=== PATIENT | male | born 1940 | race African-American/Black ===

== ENCOUNTER 2017-03-26 06:42 | Inpatient (IN) | payer MEDICARE ==
--- NOTE | ~2017-03-26 | A ---
[facility] Nutrition Therapy DATE: 03/27/17 Patient: KIERSTEN BRIZUELA Physician: JOSE LUIS Address: [address] Room/Bed: [address] [place] [address], Zip: [place] [address] Admit Date: 03/26/17 Date of : 40 Height: 6 4 Weight: 142 64.6 NUTRITIONAL ASSESSMENT: REASON: Consult RE: tube feed recs, 2 pts RE: home tube feed/ pressure ulcer 76 yo male admitted for respiratory failure, PNA PMH: Throat cancer s/p tracheostomy placement, lung cancer, anemia, dysphagia s/p PEG, HTN, T2DM Anthropometrics: Ht: 6'4" Wt: 64.5 kg (142#) BMI: 17.3 IBW: 202# 70% IBW Labs: Na+ 133, K+ 3.4, Gluc 164, Ca++ 7.8, POC 118 Meds: NaCl, Lipitor, Miralax, Novolog, Zofran, Vitamin B, Protonix, MVI I/O & Bowel function: 450/850, last BM 03/25 Skin Integrity: Open sore (sacral), dry skin (BLE), no edema noted Estimated Nutrition Needs: 7537-5173 kcal (30-35 kcal/kg) 97-129 g protein (1.5-2.0 g/kg) Assessment: Chart reviewed, events noted. Pt unable to talk d/t tracheomstomy placement d/t recent diagnosis of throat cancer. Pt is on home TF via PEG d/t h/o dysphagia. Pt was unable to give home tube feed regimen. Pt was able to nod head in agreement of recent weight loss of unknown amount. No past weights listed in AMDL. See recommendations below. Dx: Inadequate oral intake RT PMH, dysphagia AEB 17.3 BMI, 70% IBW, PEG placement prior to hospital admit. Intervention: 1. Enteral nutrition Monitoring, Evaluation and Goals: 1. Enteral nutrition; provide >80% of estimated needs and goal volume x 24 hrs 2. Weight; prevent unintentional weight loss, promote weight gain 3. Skin; promote healing Recommendations: 1. Once medically feasible, initiate enteral nutrition with Glucerna 1.5 @ 20 mL, advance 10 mL q 10 hrs to goal rate of 60 mL/hr. This will provide: 2160 kcal/ 119 g protein/ 1095 [facility] Nutrition Therapy DATE: 03/27/17 Patient: KIERSTEN BRIZUELA Physician: JOSE LUIS Address: [address] Room/Bed: [address] [place] [address], Zip: [place] [address] Admit Date: 03/26/17 Date of : 40 Height: 6 4 Weight: 142 64.6 mL free H2O. Free water flushes per MD. 2. Recommend PROVIDER NETWORK ANALYST evaluation once pt able to tolerate po intake Pt is at a moderate-severe nutritional risk. RD will f/u per protocol. Respectfully, Gaye Ugalde, Director Of Hotel Operations Satya Upton MS, RD, LD Food and Nutritional Services [facility] cc: client file
--- NOTE | ~2017-03-26 | CR72 ---
[facility] A Service of [facility] RADIOLOGY TEXT RESULTS PATIENT: KIERSTEN BRIZUELA LOCATION: [facility] 564-01 : 40 UNIT #: [id number] AGE: [address]: Leyla Govea MD SEX: M ORDER DR: [id number] [facility] [address] [facility] [place], [place] [address] [id number] I MR#: [id number] #: [id number] NAME: KIERSTEN BRIZUELA : 1940 SEX: M STUDY DATE/TIME: 03/26/2017 6:31 UNIT: CEDOF ROOM: 78101 STUDY DESCRIPTION: CR Chest Single View Portable Attending Physician: Radhika Somers M.D. Ordering Physician: Blake Garcia M.D. Primary Care Physician: Primary Care Physician No MEDICAL IMAGING REPORT This report is preliminary unless electronic signature is present EXAM Single view of the chest dated 03/26/2017 COMPARISON None HISTORY Fever, tracheal drainage, nonstop. Emesis, nausea, vomiting for the last xky-au-torvd days. Recently diagnosed with pneumonia. FINDINGS Single view of the chest was obtained. A tracheostomy tube is in place. Lungs are probably slightly hyperinflated suspicious for emphysematous changes in the appropriate clinical setting. There is diffuse mild prominence of the interstitial markings in the lungs bilaterally, right greater than left with some scattered minimal alveolar opacities in bilateral lungs. Minimal right-sided pleural effusion cannot be excluded. Heart is of normal size. No pneumothorax. IMPRESSION 1. Status post tracheostomy. 2. Slightly hyperinflated lungs suspicious for emphysematous changes. Scattered mild interstitial and alveolar disease are noted in the lungs bilaterally, right greater than left. It is probably inflammatory. 3. Minimal right-sided pleural fluid is suspected. No pneumothorax. Dictated by... Juan Landaverde M.D. THIS IS AN ELECTRONICALLY VERIFIED REPORT Juan Landaverde M.D. at 03/27/2017 3:19 PM CPR/jw [facility] A Service of [facility] RADIOLOGY TEXT RESULTS PATIENT: KIERSTEN BRIZUELA LOCATION: [facility] 564-01 : 40 UNIT #: [id number] AGE: [address]: Leyla Govea MD SEX: M ORDER DR: TD: 03/26/2017 10:45 JOB #: [id number] MEDICAL IMAGING REPORT Page 1 of 1 COPY
--- NOTE | ~2017-03-26 | HP ---
Unit #: [id number] #: [id number] Patient: KIERSTEN BRIZUELA [id number] [place], [place] [address] [id number] I MR#: [id number] NAME: KIERSTEN BRIZUELA ROOM: [facility] Age: 76 Sex: M Admission Date: 03/26/2017 : 1940 Attending Physician: Radhika Somers M.D. HISTORY AND PHYSICAL REASON FOR ADMISSION Acute hypoxic respiratory failure, healthcare-acquired pneumonia. HISTORY OF PRESENT ILLNESS Patient is a 76-year-old male who recently underwent tracheostomy, as well as surgical intervention for cancer of the larynx at the [facility]. Afterwards, he was transferred to a local rehab facility. Over the past several days he had progressive cough and dyspnea, as well as profound weakness. Increased secretions were noted from the tracheostomy placement. Subsequently, he was transferred to [facility] for further evaluation. While he was here, initial chest x-ray raised the possibility of acute infiltrates, and he was admitted after he was noted to be acutely hypoxic for the same. Patient is able to communicate with nodding his head up and down. He does speak a few words, but the majority of his history, as well as review of systems, has been elicited after discussion with the patient's nephew who is present at bedside. PAST MEDICAL HISTORY 1. Recent throat cancer diagnosis with resultant surgery including tracheostomy placement. 2. Prior history of lung cancer. I do not believe he has had a lung resection. I am not sure if he is undergoing chemotherapy or radiation, and nephew is unsure of plans as well. 3. Anemia. 4. History of dysphagia, status post PEG tube placement. 5. Hypertension. 6. Diabetes type 2. PAST SURGICAL HISTORY 1. Tracheostomy. 2. Percutaneous endoscopic gastrostomy tube placement. HOME MEDICATIONS 1. Allopurinol. 2. Norvasc. 3. Ferrous sulfate. 4. Claritin. 5. Metoprolol. 6. Multivitamin. 7. Omeprazole. 8. Simvastatin. 9. Thiamine. Unit #: [id number] #: [id number] Patient: KIERSTEN BRIZUELA 10. Vitamin E. FAMILY HISTORY Reviewed and noncontributory or non-pertinent. SOCIAL HISTORY Patient is a lifelong smoker of one to one and a half packs of cigarettes per day. Remote history of alcohol use. No illicit drug use. REVIEW OF SYSTEMS Please see History of Present Illness. Elicited after discussions with patient's nephew who was present at bedside. PHYSICAL EXAMINATION VITAL SIGNS: Temperature 98.4, pulse 75, respiratory rate 26, and blood pressure 110/70. GENERAL APPEARANCE: Patient is a 76-year-old, frail male in no acute distress. HEAD: Atraumatic and normocephalic. EARS: Tympanic membranes do not reveal any erythema or injection. NECK: Supple. Anterior also reveals tracheostomy which is in place. There are thick secretions which are noted. CARDIOVASCULAR: S1 and S2 without murmur. RESPIRATORY: Coarse rhonchi noted with prolonged expiration. GASTROINTESTINAL/ABDOMEN: Nontender and nondistended. LOWER EXTREMITIES: No evidence of any lower extremity edema and no calf tenderness. NEUROLOGIC: Alert and oriented x3. He does speak a few words and mumbles throughout conversation. INITIAL ER COURSE Normal saline, vancomycin, Zosyn, and tobramycin were initiated. Initial laboratory studies show a hemoglobin of 8.2 and white count normal. Glucose 271. Chest x-ray shows acute infiltrates. Vital signs at time of admission showed a temperature of 100.7, pulse 127, and blood pressure 103/47. INITIAL ADMISSION DIAGNOSES 1. Acute hypoxic respiratory failure. 2. Sepsis criteria present on admission. 3. Healthcare-acquired pneumonia. 4. Chronic respiratory failure. 5. 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 6. Mucus plugging and/or thick secretions noted tracheostomy. 7. Prior history of lung carcinoma, details unclear. 8. Hypertension. 9. Failure to thrive. 10. Diabetes type 2. PLAN Admission to telemetry floor. Healthcare-acquired pneumonia protocol to be initiated with the exception of tobramycin. Check CT chest. Pulmonary consultation. Laboratory studies in a.m. Plans have been reviewed with patient's (1) present at bedside. Patient is Full Code. Speech therapy services will also evaluate swallowing mechanism. Nutrition consult as well. Dictated by Unit #: [id number] #: [id number] Patient: KIERSTEN BRIZUELA M.D. ISN/am TD: 03/26/2017 20:06 JOB #: [id number] HISTORY AND PHYSICAL Page 1 of 1 X Radhika Somers MD HISTORY AND PHYSICAL
--- NOTE | ~2017-03-26 | CT55 ---
[facility] A Service of [facility] RADIOLOGY TEXT RESULTS PATIENT: KIERSTEN BRIZUELA LOCATION: [facility] 564-01 : 40 UNIT #: [id number] AGE: [address]: Leyla Govea MD SEX: M ORDER DR: [id number] [facility] [address] [facility]. [place], [place] [address] [id number] I MR#: [id number] Acc #: [id number] NAME: KIERSTEN BRIZUELA : 1940 SEX: M STUDY DATE/TIME: 03/27/2017 1:34 UNIT: [facility] ROOM: [facility] STUDY DESCRIPTION: CT Chest W Con Attending Physician: Radhika Somers M.D. Ordering Physician: Radhika Somers M.D. Primary Care Physician: Primary Care Physician No MEDICAL IMAGING REPORT This report is preliminary unless electronic signature is present EXAM CT chest with contrast Date: 03/27/2017 HISTORY Acute respiratory failure, shortness of breath, pneumonia, nausea, vomiting and fever. Symptoms present for 2 days. History of throat and lung cancer. COMPARISON AP portable chest 03/26/2017. No prior CT chest at this institution for comparison. PROCEDURE 5 mm axial images from the thoracic inlet through the upper abdomen after IV contrast administration. Sagittal and coronal reformatted images were obtained. This CT exam was performed with one or more of the following radiation dose reduction techniques: automatic exposure control, adjustment of mA and/or kV according to patient size, and iterative reconstruction. FINDINGS Abnormal infiltrative soft tissue thickening is demonstrated within the right lower neck beginning above the level of the thyroid gland, encasing but not obstructing the right common carotid artery. Surgical clips are seen in the same vicinity. There is infiltrative soft tissue mass within the middle mediastinum anterior to the rjk-xh-cunia thoracic trachea extending nearly 4.2 cm craniocaudally. At the anterior margin of the carlos, the soft tissue thickening measures at least 2.6 cm AP x 5.7 cm transverse, extending to the subcarinal region, but measures at least 2.4 cm thickness on the left. The main stem bronchi remain patent. STS. [facility] A Service of [facility] RADIOLOGY TEXT RESULTS PATIENT: KIERSTEN BRIZUELA LOCATION: [facility] 564-01 : 40 UNIT #: [id number] AGE: [address]: Leyla Govea MD SEX: M ORDER DR: Extensive multifocal patchy nodular densities are seen throughout both lungs thought to represent multifocal pneumonia. There is more confluent irregular airspace disease in the anterior left upper lobe measuring 2.7 x 1.7 cm. Dense consolidations are present within posterior bilateral lower lobes, and there is a small to moderate right pleural effusion layering to a depth of 3.5 cm. Left basilar pleural fluid appears loculated measuring up to 3 cm thickness. Although the study is not tailored for evaluation of pulmonary embolism, no pulmonary embolism is seen. Background moderate emphysematous changes are present. Tracheostomy appliance is in place. Percutaneous gastrostomy tube is in place. Included portions of the upper abdominal organs are within normal limits. No acute or suspicious osseous lesions are identified. IMPRESSION 1. Consolidative changes in the bilateral lower lobes favored to represent pneumonia, with multifocal patchy nodular densities scattered throughout both lungs predominately peribronchiolar distribution favored to represent multifocal pneumonia changes. 2. Small to moderate right pleural effusion. Small left basilar pleural effusion appears loculated. 3. Infiltrative appearing soft tissue mass within the mediastinum along the pretracheal distribution extending to the precarinal and subcarinal regions. Findings may represent changes of patient's stated history of throat or lung cancer. Additionally, infiltrative soft tissue thickening is also seen within the right lower neck. Metastatic disease at that location not excluded. 4. Tracheostomy appliance in place. 5. Moderate emphysema. 6. Percutaneous gastrostomy tube in place. 7. Not mentioned in the body of the report, there are dense coronary calcifications. Please correlate with cardiac history. Dictated by... Angeles Powell M.D. THIS IS AN ELECTRONICALLY VERIFIED REPORT Angeles Powell M.D. at 03/28/2017 10:00 PM Pj TD: 03/27/2017 07:30 JOB #: [id number] MEDICAL IMAGING REPORT Page 1 of 1 COPY
--- NOTE | ~2017-03-26 | DS ---
Unit #: [id number] #: [id number] Patient: KIERSTEN BRIZUELA [id number] [address] [address] [id number] I MR#: [id number] NAME: KIERSTEN BRIZUELA ROOM: 56 Age: 76 Sex: M Admission Date: 03/26/2017 : 1940 Discharge Date: Attending Physician: Leyla Govea M.D. Primary Care Physician: Anabella Primary Care Physician DISCHARGE SUMMARY DISCHARGE DIAGNOSES 1. Sepsis from pneumonia. 2. Methicillin-resistant Staphylococcus aureus pneumonia. 3. Qtqqv-xc-saxaixn hypoxic respiratory failure. 4. Coccyx and sacral decubitus ulcer, stage II, present on admission. 5. History of throat cancer with surgery including tracheostomy placement. 6. History of lung cancer. 7. History of dysphagia, status post percutaneous endoscopic gastrostomy tube placement. 8. History of anemia. 9. Hypertension. 10. Diabetes mellitus type 2, uncontrolled. 11. Anemia, chronic iron deficiency. 12. Mild hyponatremia. 13. Hypocalcemia. 14. Metabolic acidosis. 15. Severe protein malnutrition. 16. Underweight with calorie malnutrition. CONSULTATIONS Dr. Rivera. PROCEDURES None. DIAGNOSTIC STUDIES LABORATORY DATA: Glucose 155, sodium 130, potassium 4.0, creatinine 0.9, carbon dioxide 21, liver enzymes normal, albumin 2.0. Sputum cultures growing MRSA. WBC 6.5, hemoglobin 8.6, platelets 223. IMAGING: CT of the chest shows bilateral lower lobe consolidative changes. ALLERGIES DANIELA inhibitors and bupropion. DISCHARGE MEDICATIONS 1. Albuterol 3 mL nebulizer q.i.d. 2. Albuterol 3 mL nebulizer q.2 h. p.r.n. shortness of breath. 3. Neurontin 300 q.i.d. 4. Claritin 10 mg daily. 5. Norvasc 10 mg p.o. daily. 6. Lopressor 25 t.i.d. Unit #: [id number] #: [id number] Patient: KIERSTEN BRIZUELA 7. MiraLAX 17 grams daily. 8. Simvastatin 40 daily. 9. NovoLog low dose sliding scale q.6 h. 10. Ferrous sulfate 300 daily. 11. Allopurinol 100 b.i.d. 12. Chlorhexidine oral rinse 15 mL t.i.d. 13. Multivitamin one tablet daily. 14. Omeprazole 20 daily. 15. Vitamin B complex 0.4 mg daily, 16. Vitamin E 200 units daily. 17. Bactrim DS one tablet through PEG b.i.d. for seven days. HOSPITALIZATION COURSE A 76-year-old admitted because of shortness of breath. Wxfsh-aa-seidpdv hypoxic respiratory failure from pneumonia: Continue with the oxygen as needed p.r.n. through tracheostomy. MRSA pneumonia: Patient was started on broad-spectrum antibiotics. Sputum cultures are growing MRSA. He is receiving vancomycin currently. I am going to discontinue vancomycin and continue the Bactrim as per Dr. Rivera's recommendations. Currently he is afebrile, WBC normal. I Coccyx and sacral stage II decubitus ulcer, present on admission: Continue with the local wound care. Patient has severe protein malnutrition and calorie malnutrition and underweight: Continue with the dietitian recommendations. Dietitian saw the patient during the hospitalization course. Anemia secondary to iron deficiency, chronic: Continue with iron tablets. DISPOSITION Discussed with , okay to discharge to rehab. DISCHARGE INSTRUCTIONS Please note that patient has high risk of readmissions from pneumonia because of continuous secretions through his trach and poor generalized condition. Patient is trach suctioning q.4 h. Patient needs his head elevated at 45 degrees all the time. Discharge time taken is 32 minutes. Dictated by... Len Gonzalez/maribel TD: 03/29/2017 15:24 JOB #: [id number] Unit #: [id number] #: [id number] Patient: KIERSTEN BRIZUELA DISCHARGE SUMMARY Page 1 of 1 X Leyla Govea MD X DISCHARGE SUMMARY
--- NOTE | ~2017-03-26 | CO ---
Unit #: [id number] #: [id number] Patient: KIERSTEN COHN [id number] [address] [place], [place] [address] [id number] I MR#: [id number] NAME: KIERSTEN COHN ROOM: 564 Age: 76 Sex: M Admission Date: 03/26/2017 : 1940 Attending Physician: Leyla Govea M.D. Consultation Date: 03/27/2017 CONSULTATION REPORT REASON FOR CONSULTATION Pneumonia. HISTORY OF PRESENT ILLNESS A 76-year-old gentleman, who apparently underwent laryngectomy and tracheostomy at [facility], but those records and details are unavailable. He was at rehab and had increasing cough and shortness of breath and presented to the hospital, where he was diagnosed with pneumonia. There was mention of respiratory failure, but I do not see a documented low room air sat. Today, he states he feels better. He denies any hemoptysis, wheezing. He really cannot tell me if he had mucopurulent sputum. He seems to lack insight. PAST MEDICAL HISTORY Throat cancer with some type of surgery including tracheostomy, details unavailable; history of abnormal CAT scan. There is mention of possible lung cancer, but he states "if I have it, they haven't told me yet." He denies any chemotherapy or radiation for anything in his chest. History of dysphagia, status post PEG tube. History of anemia, hypertension, and diabetes. MEDICATIONS Allopurinol, Norvasc, iron, Claritin, metoprolol, multivitamin, Prilosec, simvastatin, thiamine, and vitamin E. ALLERGIES DANIELA inhibitors and Zyban. SOCIAL HISTORY Basically smoked up until he has tracheostomy. FAMILY HISTORY No definite familial lung disease. REVIEW OF SYSTEMS Difficult to obtain. He denies chest pain, palpitations, abdominal pain, hematemesis. Again, he apparently has a PEG tube, must have some type of dysphagia. Primary team is considering video swallow. No focal weakness or paresthesias. No definite fever. No hematuria or dysuria. Further review of systems negative and again somewhat unreliable. PHYSICAL EXAMINATION GENERAL: Reveals a patient, who is thin and somewhat cachectic appearing. Unit #: [id number] #: [id number] Patient: GELACIO,KIERSTEN VITAL SIGNS: He had a T-max of 100.7, now afebrile; pulse 71; respiratory rate is 20; blood pressure is 103/59. He is 6 feet 4 inches, 142 pounds. HEENT: Pupils are equal, round, and reactive to light. Sclerae anicteric. Head atraumatic. NECK: Supple. No supraclavicular or cervical adenopathy appreciated. Shiley trach in. CHEST: Decreased breath sounds. Scattered rhonchi. No definite wheeze. CARDIAC: PMI in his epigastrium. Regular rate and rhythm. No definite murmur, rub, or gallop. ABDOMEN: Soft and nontender. No hepatomegaly or rebound. EXTREMITIES: Reveal no clubbing, cyanosis, or edema. Calves are nontender. SKIN: Very dry, but no acute rash or diaphoresis. NEUROLOGIC: Grossly intact. No focal motor or sensory deficits. DIAGNOSTIC STUDIES IMAGING STUDIES: CT scan shows emphysema, left lower lobe pneumonia, scattered patchy infiltrates particularly on the right, and a left upper lobe mass like lesion. No old scans are available. LABORATORY RESULTS: His BUN is 15, creatinine is 0.7, potassium is 3.4. Lactic acid 1.4. TSH normal. Cardiac enzymes normal. CBC; white blood cell count was 11.5, now 10.2; hemoglobin 8.2; MCV is 100.8; platelet count normal. Urinalysis markedly abnormal, innumerable white cells, 5 to 10 red cells. Blood cultures performed and are pending. Urine is pending. No sputum has been obtained. There was an MRSA screen of his nares performed and it is pending. CARDIOVASCULAR STUDIES: EKG, rhythm strips are sinus. It appears he has possible right bundle-branch. EKG is informal. IMPRESSION 1. Pneumonia, suspect aspiration. 2. Emphysema. 3. Questionable respiratory failure. 4. Abnormal urinalysis consistent with urinary tract infection. 5. Abnormal CAT scan, including masslike area left upper lobe. 6. Very small pleural effusions, likely too small to undergo thoracentesis. 7. Suspect aspiration. 8. Medical problems listed above. PLAN Agree with antibiotics. Follow up cultures obtained, but he needs a stat sputum Gram stain and culture. It should be easily obtained given his tracheostomy. I will add nebulized bronchodilators to improve mucociliary clearance. I will check room air oxygenation needs. If plans are to remove the PEG, then agree with video swallow, otherwise continue nutrition. [facility]. Again, details are unavailable for [facility] for [facility] and follow up with his lung mass. Thank you very much for allowing me to participate in the care of Mr. Cohn. Dictated by... Edgardo Rivera M.D. Unit #: [id number] #: [id number] Patient: KIERSTEN COHN CARLOS/julienne TD: 03/28/2017 02:31 JOB #: [id number] CONSULTATION REPORT Page 1 of 1 X Edgardo Rivera MD X CONSULTATION REPORT
--- NOTE | ~2017-03-26 | EKG ---
PATIENT: KIERSTEN BRIZUELA UNIT #: [id number] Ventricular Rate: 98 BPM Atrial Rate: 98 BPM P-R Interval: 136 ms QRS Duration: 130 ms Q-T Interval: 398 ms QTC Calculation(Bezet): 508 ms P [place]: 78 degrees Calculated R [place]: -72 degrees Calculated T [place]: 72 degrees Diagnosis Line: Normal sinus rhythm Diagnosis Line: Right bundle branch block Diagnosis Line: Left anterior fascicular block Diagnosis Line: Bifascicular block Diagnosis Line: Abnormal ECG Diagnosis Line: No previous ECGs available Diagnosis Line: Confirmed by SOCORRO BENDER MD ([id number]) on 03/26/2017 Diagnosis Line: 10:50:58 PM INTERPRETING MD: YULIA BEARDEN
[2017-03-26 06:30] LABS: POC - CKMB <1.0 ng/mL (0.0-7.9); POC - TROPONIN <0.05 ng/mL (<=0.05)
[2017-03-26 07:51] LABS: BASOPHIL% 0.3 % (0-2.5); EOSINOPHIL% 0.4 % (0.0-7.0); HEMATOCRIT 25.1 % (38.0-50.0); HEMOGLOBIN 8.2 gm/dL (13.0-16.0); LYMPHOCYTE# 0.3 X10e3 (1.0-3.5); LYMPHOCYTE% 3.9 % (17.0-45.0); MEAN CORPUSCULAR HEMOGLOBIN 33.2 PG (28-34); MEAN CORPUSCULAR HGB CONC 32.5 g/dL (30-36); MEAN PLATELET VOLUME 9.1 FL (6.5-11.5); MONOCYTE# 0.3 X10e3 (0-1.0); MONOCYTE% 3.4 % (3.0-12.0); NEUTROPHIL# 7.4 X10e3 (1.5-7.1); PLATELET COUNT 196 X10e3 (140-420); RED BLOOD COUNT 2.46 X10e (3.90-5.60); RED CELL DISTRIBUTION WIDTH 13.6 % (11.0-15.5)
[2017-03-26 07:53] LABS: DIFF IND NO
[2017-03-26 08:26] LABS: ALBUMIN SERUM 1.9 g/dL (3.5-5.0); BILIRUBIN, DIRECT 0.1 mg/dL (0.0-0.2); BILIRUBIN,INDIRECT 0.4 mg/dL (0.0-0.9); BILIRUBIN,TOTAL 0.5 mg/dL (0.2-2.0); CALCIUM SERUM 7.9 mg/dL (8.4-10.2); GLOM FILT RATE Estimated 72.8 mL/min (>60); POTASSIUM 3.5 mmol/L (3.5-5.1); PROTEIN TOTAL SERUM 6.4 g/dL (6.0-8.3)
[2017-03-26 08:50] LABS: URINE SOURCE CLEAN CATCH
[2017-03-26 09:02] LABS: URINE APPEARANCE CLOUDY; URINE BILIRUBIN NEG (NEG); URINE BLOOD 1+ (NEG); URINE COLOR YELLOW; URINE GLUCOSE NEG (NEG); URINE KETONE NEG (NEG); URINE LEUKOCYTE ESTERASE 3+ (NEG); URINE NITRATE POS (NEG); URINE PROTEIN 1+ (NEG); URINE SPECIFIC GRAVITY 1.018 (1.003-1.035)
[2017-03-26 09:06] LABS: CULTURE INDICATED? YES; U HYALINE CASTS AUWI 0-2 /[LPF]; URINE BACTERIA AUWI NEG (NEGATIVE); URINE SQUAMOUS EPITHELIAL CELL NONE SEEN /[HPF]; UWBCS1 AUWI INNUM (0-5)
[2017-03-26] MEDS ORDERED: GLUCERNA 1.5 C237 ML GT (12:39)
[2017-03-26] MEDS ORDERED: AMLODIPINE BESY10 MG GT (12:40)
[2017-03-26] MEDS ORDERED: ALLERGY10 M1 GT (12:40)
[2017-03-26] MEDS ORDERED: MULTI-VITAMIN-1 EACH GT (12:41)
[2017-03-26] MEDS ORDERED: OMEPRAZOLE20 M1 GT (12:42)
[2017-03-26] MEDS ORDERED: VITAMIN B-1000.4 MG GT (12:44)
[2017-03-26] MEDS ORDERED: [UNRECOGNIZED DRUG - OTHER] GT (12:45)
[2017-03-26] MEDS ORDERED: FERROUS SU220 MG/53 GT (12:46)
[2017-03-26] MEDS ORDERED: PERIDEX480 ML PO (12:52)
[2017-03-26] MEDS ORDERED: NEURONTIN300 MG GT (12:52)
[2017-03-26] MEDS ORDERED: ZYLOPRIM100 MG GT (12:53)
[2017-03-26] MEDS ORDERED: METOPROLOL SUCC25 MG GT (12:53)
[2017-03-26] MEDS ORDERED: SIMVASTATIN40 MG GT (12:53)
[2017-03-26] MEDS ORDERED: MIRALAX17 GM GT (12:54)
[2017-03-26 18:05] LABS: HEMATOCRIT 27.8 % (38.0-50.0); HEMOGLOBIN 9.3 gm/dL (13.0-16.0); MEAN CELL VOLUME 100.9 FL (83-96); MEAN CORPUSCULAR HEMOGLOBIN 33.7 PG (28-34); MEAN CORPUSCULAR HGB CONC 33.4 g/dL (30-36); MEAN PLATELET VOLUME 8.1 FL (6.5-11.5); RED BLOOD COUNT 2.75 X10e (3.90-5.60); RED CELL DISTRIBUTION WIDTH 13.1 % (11.0-15.5); WHITE BLOOD COUNT 11.5 X10e3 (4.0-10.5)
[2017-03-26 18:27] LABS: BILIRUBIN,TOTAL 0.8 mg/dL (0.2-2.0); BUN/CREATININE RATIO 23.75; CALCIUM SERUM 7.9 mg/dL (8.4-10.2); CREATININE SERUM 0.8 mg/dL (0.6-1.4); GLOM FILT RATE Estimated 100.6 mL/min (>60); POTASSIUM 4.4 mmol/L (3.5-5.1); PROTEIN TOTAL SERUM 6.7 g/dL (6.0-8.3)
[2017-03-27 05:22] LABS: HEMATOCRIT 24.4 % (38.0-50.0); HEMOGLOBIN 8.2 gm/dL (13.0-16.0); MEAN CELL VOLUME 100.8 FL (83-96); MEAN CORPUSCULAR HEMOGLOBIN 33.9 PG (28-34); MEAN CORPUSCULAR HGB CONC 33.6 g/dL (30-36); MEAN PLATELET VOLUME 8.1 FL (6.5-11.5); RED BLOOD COUNT 2.42 X10e (3.90-5.60); RED CELL DISTRIBUTION WIDTH 13.1 % (11.0-15.5); WHITE BLOOD COUNT 10.2 X10e3 (4.0-10.5)
[2017-03-27 06:48] LABS: BUN/CREATININE RATIO 21.42; CALCIUM SERUM 7.8 mg/dL (8.4-10.2); CREATININE SERUM 0.7 mg/dL (0.6-1.4); GLOM FILT RATE Estimated 106.3 mL/min (>60); POTASSIUM 3.4 mmol/L (3.5-5.1)
[2017-03-28 06:18] LABS: HEMATOCRIT 25.2 % (38.0-50.0); HEMOGLOBIN 8.4 gm/dL (13.0-16.0); MEAN CELL VOLUME 100.3 FL (83-96); MEAN CORPUSCULAR HEMOGLOBIN 33.4 PG (28-34); MEAN CORPUSCULAR HGB CONC 33.3 g/dL (30-36); MEAN PLATELET VOLUME 7.6 FL (6.5-11.5); RED BLOOD COUNT 2.52 X10e (3.90-5.60); RED CELL DISTRIBUTION WIDTH 13.3 % (11.0-15.5); WHITE BLOOD COUNT 7.6 X10e3 (4.0-10.5)
[2017-03-28 07:04] LABS: BUN/CREATININE RATIO 15.71; CALCIUM SERUM 7.7 mg/dL (8.4-10.2); CREATININE SERUM 0.7 mg/dL (0.6-1.4); GLOM FILT RATE Estimated 106.3 mL/min (>60); POTASSIUM 3.4 mmol/L (3.5-5.1)
[2017-03-29 05:34] LABS: HEMOGLOBIN 8.6 gm/dL (13.0-16.0); MEAN CORPUSCULAR HEMOGLOBIN 33.4 PG (28-34); MEAN CORPUSCULAR HGB CONC 33.1 g/dL (30-36); MEAN PLATELET VOLUME 7.9 FL (6.5-11.5); RED BLOOD COUNT 2.57 X10e (3.90-5.60); RED CELL DISTRIBUTION WIDTH 13.3 % (11.0-15.5); WHITE BLOOD COUNT 6.5 X10e3 (4.0-10.5)
[2017-03-29 06:22] LABS: BILIRUBIN,TOTAL 0.7 mg/dL (0.2-2.0); BUN/CREATININE RATIO 15.55; CALCIUM SERUM 7.9 mg/dL (8.4-10.2); CREATININE SERUM 0.9 mg/dL (0.6-1.4); GLOM FILT RATE Estimated 95.8 mL/min (>60); PROTEIN TOTAL SERUM 6.7 g/dL (6.0-8.3)
== END 2017-03-29 18:34 | DRG 871 ==
LOC: CED 06:42 → CEDOF 09:05 → C5C 15:10
PROVIDERS: Emergency Medicine; Family Medicine; Internal Medicine
DX: A41.02 Sepsis due to Methicillin resistant Staphylococcus aureus (principal); J15.212 Pneumonia due to Methicillin resistant Staphylococcus aureus; J96.21 Acute and chronic respiratory failure with hypoxia; E43 Unspecified severe protein-calorie malnutrition; L89.152 Pressure ulcer of sacral region, stage 2; T17.490A Other foreign object in trachea causing asphyxiation, initial encounter; E87.2 Acidosis; E11.9 Type 2 diabetes mellitus without complications; E87.1 Hypo-osmolality and hyponatremia; Z68.1 Body mass index [BMI] 19.9 or less, adult; Z88.8 Allergy status to other drugs, medicaments and biological substances; Z85.118 Personal history of other malignant neoplasm of bronchus and lung; Z85.89 Personal history of malignant neoplasm of other organs and systems; I10 Essential (primary) hypertension; D50.9 Iron deficiency anemia, unspecified; E83.51 Hypocalcemia; Z43.0 Encounter for attention to tracheostomy; Z87.891 Personal history of nicotine dependence
CPT/HCPCS: 36415; 71010; 71260; 80048; 80053; 80076; 80202; 81003; 82553; 82947; 83036; 83605; 84443; 84484; 85025; 85027; 87040; 87070; 87077; 87086; 87186; 87205; 87899; 93005; 94640; 94760; 96361; 96365; 96367; 96368; 97163; 97167; 97530; 97535; 99285; G8978-GP; G8979-GP; G8987-GO; G8988-GO; J1650; J1815; J2543; J2920; J3260; J3370; Q9967

== ENCOUNTER 2017-04-06 09:21 | Inpatient (IN) | payer MEDICARE ==
--- NOTE | ~2017-04-06 | CT16 ---
[facility] A Service of [facility] & [facility] RADIOLOGY TEXT RESULTS PATIENT: KIERSTEN BRIZUELA LOCATION: [facility] 333-01 : 40 UNIT #: [id number] AGE: [address]: Leyla Govea MD SEX: M ORDER DR: [id number] [facility] [address] [facility]. [place], [place] [address] [id number] I MR#: [id number] Acc #: [id number] NAME: KIERSTEN BRIZUELA : 1940 SEX: M STUDY DATE/TIME: 04/14/2017 18:51 UNIT: [facility] PCU ROOM: 333 STUDY DESCRIPTION: CT Angio Chest for PE Attending Physician: Leyla Govea M.D. Ordering Physician: Leyla Govea M.D. Primary Care Physician: No Primary Care Physician MEDICAL IMAGING REPORT This report is preliminary unless electronic signature is present EXAM CT chest PE protocol. HISTORY Sats started dropping yesterday, elevated D-dimer. History of throat cancer, lung cancer. FINDINGS Axial images performed through the chest following IV contrast. 3-D coronal and sagittal reconstructed images reviewed at a workstation. TECHNIQUE This CT exam was performed with one or more of the following radiation dose reduction techniques: automatic exposure control, adjustment of mA and/or kV according to patient size, and iterative reconstruction. FINDINGS The examination demonstrates severe emphysema with extensive bronchial secretions suggesting a severe emphysema and chronic bronchitis. There is a spiculated lesion left lower lobe measuring 2.8 x 1.8 cm and is concerning for neoplasm. This could represent an area of atelectasis, but given the lack of enhancement and irregularity may represent underlying mass lesion. This is felt to have been obscured on previous studies due to atelectasis and effusions. There is small bilateral pleural effusions right greater than left with bibasilar compressive atelectasis. Moderate amount of mediastinal lymphadenopathy could be related to chronic disease or metastatic disease. Normal enhancement of the pulmonary arteries. No evidence of embolus. There is enlargement of the central pulmonary arteries with some peripheral pruning compatible with pulmonary hypertension. Aorta free of dissection or aneurysm. The heart size within normal limits. The upper abdomen unremarkable except for a G tube. The osseous structures and thoracic inlet unremarkable. Patient does have STS. [facility] A Service of [facility] RADIOLOGY TEXT RESULTS PATIENT: KIERSTEN BRIZUELA LOCATION: [facility] 333-01 : 40 UNIT #: [id number] AGE: [address]: Leyla Govea MD SEX: M ORDER DR: a tracheostomy tube in place. Generalized cachexia. IMPRESSION 1. Severe emphysema and evidence of a chronic bronchitis with a large amount of secretions noted within the bronchi. Additional respiratory therapy may be beneficial. 2. A small bilateral pleural effusions right greater than left, though these appear somewhat improved from earlier studies. 3. A 1.8 x 2.8 cm spiculated mass left lower lobe highly concerning for primary lung neoplasm. 4. Mediastinal adenopathy could be reactive though may be indicative of metastatic disease. 5. No evidence of pulmonary embolus. 6. Trach tube in G tube in expected position Dictated by... Ran Mak M.D. THIS IS AN ELECTRONICALLY VERIFIED REPORT Ran Mak M.D. at 04/17/2017 6:07 AM Andrew TD: 04/14/2017 23:23 JOB #: [id number] MEDICAL IMAGING REPORT Page 1 of 1 COPY
--- NOTE | ~2017-04-06 | FU ---
[facility] Nutrition Therapy DATE: 04/11/17 Patient: KIERSTEN BRIZUELA Physician: KAY Address: [address] [place] [address] Room/Bed: [address] [place] [address], Zip: [place] [address] Admit Date: 04/06/17 Date of : 40 Height: 6 4 Weight: 139 63.1 NUTRITION MONITORING/FOLLOW-UP: Reason: Follow up Anthropometrics: Wt 04/11: 63.1 kg Labs: K+ 5.3 Gluc 306 BUN 31 Accuchecks 261-307 Meds: Lipitor, lopressor, MOM, bisacodyl, NaCl, MVI with minerals, miralax, vitamin E, vitamin B complex Last BM: 04/10 Skin: No changes noted Edema: None noted Estimated Nutrition Needs: 5886-4041 kcals (35-40 kcals/kg) 95-127 grams protein (1.5-2.0 grams/kg) Assessment: Chart reviewed, events noted. Enteral nutrition was initiated per RD recommendations with Glucerna 1.5 @ 65 mL/hr x 24 hrs. RN reports that the pt's K+ is high; however, she believes this is due to medication and will resolve. RD suggested to change enteral formula to Jevity 1.5 if the pt's K+ remains elevated. RD spoke with the pt at bedside. Pt has trach and communicates with nodding and writing on paper. Pt denies having any symptoms of enteral intolerance, no abdominal pain, n/v. Per pump history, the pt has received 96% of enteral goal volume over the past 24 hrs. Please see recommendations below. Dx: Inadequate enteral nutrition infusion RT enteral nutrition not yet initiated AEB NPO status- RESOLVED 2) Underweight RT cancer, dysphagia AEB PEG, BMI 17.0, 69% IBW, 2.4# weight loss in 10 days- ACTIVE Intervention: 1. Enteral nutrition Monitoring, Evaluation and Goals: 1. EN; provide >80% goal volume x 24 hrs- MET 2. Improve labs; electrolytes- NOT MET [facility] Nutrition Therapy DATE: 04/11/17 Patient: KIERSTEN BRIZUELA Physician: KAY Address: [address] [place] [address] Room/Bed: [address] [place] [address], Zip: [place] [address] Admit Date: 04/06/17 Date of : 40 Height: 6 4 Weight: 139 63.1 3. Weight; promote gradual weight gain- IN PROGRESS NEW GOALS: 1. Continue above goals 2. Monitor glucose levels Recommendations: 1. Continue the current enteral nutrition regimen with Glucerna 1.5 @ 65 mL/hr x 24 hrs as tolerated. 2. If the pt's K+ remains high, consider changing formula from Glucerna 1.[address] will follow to determine if needed. If changed to Jevity 1.5, goal rate will remain 65 mL/hr. This would provide: 2340 kcals/ 100 grams protein/ 1186 mL free H20 3. Please ensure HOB is upright at a minimum of 30-45 degrees during EN administration (x 24 hrs). Status: Pt is at mild-moderate nutritional risk. RD will continue to follow. Respectfully, STEPHANIE CHATMAN RD, LD [facility] cc: client file
--- NOTE | ~2017-04-06 | CR72 ---
[facility] A Service of [facility] & [facility] RADIOLOGY TEXT RESULTS PATIENT: KIERSTEN BRIZUELA LOCATION: [facility] 333-01 : 40 UNIT #: [id number] AGE: [address]: Leyla Govea MD SEX: M ORDER DR: [id number] [facility] [address] [facility]. [place], [place] [address] [id number] MR#: [id number] Acc #: [id number] NAME: KIERSTEN BRIZUELA : 1940 SEX: M STUDY DATE/TIME: 04/06/2017 10:31 UNIT: [facility] ROOM: STUDY DESCRIPTION: CR Chest Single View Portable Attending Physician: Blake Garcia M.D. Ordering Physician: Blake Garcia M.D. Primary Care Physician: No Primary Care Physician MEDICAL IMAGING REPORT This report is preliminary unless electronic signature is present EXAM Portable chest x-ray, 04/06/2017. HISTORY Cough. Bleeding from trach today. Short of air. Diabetic, tracheostomy, prior history of throat lung cancer. FINDINGS AP radiographs of the chest are presented. Comparison 03/26/2017. Tracheostomy tube unchanged. Surgical clips right neck. No acute-appearing bony abnormality. Heart and mediastinum normal in size and contour. The lungs are hyperinflated consistent with underlying COPD. No acute-appearing bony abnormality. The heart is [id number] limits of normal in size. Mediastinal contours within normal limits on this examination. Please see CT examination dated 03/27/2017 for discussion of abnormal soft tissue in the mediastinum. Lungs are hyperinflated consistent with underlying emphysema. The spiculated nodular density in the left suprahilar region corresponding to approximately 1.6 cm x 2.7 cm nodular density in the left upper lobe on prior CT examination. Exact etiology unclear. While infectious or inflammatory etiology could be considered. Neoplastic disease is a strong consideration. Please correlate with any prior histologic assessment. In the absence of prior characterization, consider assessment with CT PET scan or bronchoscopy. No other spiculated nodular densities are seen. There are ill-defined patchy densities in the right lung base probably representing residual pneumonia. No areas of dense airspace disease. Slight blunting of bilateral costophrenic sulci may reflect the pulmonary hyperinflation and/or very small pleural effusions. There is no pneumothorax. Gastrostomy tube in place over the upper to mid stomach. Dictated by... Pérez Burgos M.D. [facility] A Service of [facility] RADIOLOGY TEXT RESULTS PATIENT: KEIRSTEN BRIZUELA LOCATION: [place] [address] : 40 UNIT #: [id number] AGE: [address]: Leyla Govea MD SEX: M ORDER DR: THIS IS AN ELECTRONICALLY VERIFIED REPORT Pérez Burgos M.D. at 04/07/2017 11:32 PM Mayuri TD: 04/06/2017 12:48 JOB #: [id number] MEDICAL IMAGING REPORT Page 1 of 1 COPY
--- NOTE | ~2017-04-06 | OR ---
Unit #: [id number] #: [id number] Patient: KIERSTEN BRIZUELA [id number] [address] [place], [place] [address] [id number] Stephanie MR#: [id number] NAME: KIERSTEN BRIZUELA ROOM: [facility] Date of Procedure: 04/13/2017 Admission Date: 04/06/2017 Surgeon: Anthony Wong M.D. : 1940 Attending Physician: Leyla Govea M.D. Primary Care Physician: No Primary Care Physician PROCEDURE OPERATIVE NOTE PROCEDURE PERFORMED 1. EGD to descending duodenum. 2. Colonoscopy to cecum. INDICATION Patient with iron deficiency anemia, Hemoccult positive stool. He also has head and neck cancer. MEDICATIONS Monitored anesthesia. POSTOP FINDINGS 1. Nearly blocking tumor in the oropharyngeal area. I was only able to negotiate this area through the (1) small scope. 2. Mid and distal esophagus was normal. 3. Mild gastritis. 4. Normal duodenal bulb and descending duodenum. 5. G-tube in place. 6. Colonoscopy completed to cecum. Mild diverticulosis noted. 7. No large polyps or masses were seen. 8. No active bleeding or source of bleeding was seen. PLAN Symptomatic treatment. Iron replacement. Transfuse as needed. DESCRIPTION OF PROCEDURE The patient was explained the procedure risks and benefits, along with the risk and benefits of anesthesia. He was brought to the endoscopy room. Scope was passed down the mouth and the esophagus, stomach, duodenal bulb and descending duodenum. Findings as described. Gently the scope was pulled out. He tolerated this part very well. At this time he was turned around and repositioned for colonoscopy. Rectal exam was done, which was normal. Colonoscope was lubricated and passed through the rectum and advanced under direction vision all the way to the cecum. The cecum was identified by the ileocecal valve and appendiceal orifice. Anastomosis seen from previous surgery. No polyps, masses or colitis were seen. I retroflexed in the rectum. Small hemorrhoid seen. Scope was gently pulled out. He tolerated it well. No immediate complications were seen. Unit #: [id number] #: [id number] Patient: KIERSTEN BRIZUELA Dictated by... Anthony Wong M.D. SKJ/dottie TD: 04/13/2017 14:55 JOB #: [id number] PROCEDURE OPERATIVE NOTE Page 1 of 1 X Anthony Wong MD PROCEDURE OPERATIVE NOTE
--- NOTE | ~2017-04-06 | EKG ---
PATIENT: KIERSTEN BRIZUELA UNIT #: [id number] Ventricular Rate: 103 BPM Atrial Rate: 103 BPM P-R Interval: 182 ms QRS Duration: 122 ms Q-T Interval: 358 ms QTC Calculation(Bezet): 468 ms P Avery: 71 degrees Calculated R Avery: -74 degrees Calculated T Avery: 57 degrees Diagnosis Line: Sinus tachycardia Diagnosis Line: Right bundle branch block with repolarization Diagnosis Line: abnormality Diagnosis Line: Left anterior fascicular block Diagnosis Line: Bifascicular block Diagnosis Line: Abnormal ECG Diagnosis Line: When compared with ECG of 26-MAR-2017 07:54, Diagnosis Line: T wave inversion no longer evident in Anterior Diagnosis Line: leads Diagnosis Line: Confirmed by VINNY MCKENZIE MD ([id number]) on 04/07/2017 Diagnosis Line: 8:01:14 PM INTERPRETING MD: MAGALY BEARDEN
--- NOTE | ~2017-04-06 | CT57 ---
[facility] A Service of [facility] & [facility] RADIOLOGY TEXT RESULTS PATIENT: KIERSTEN BRIZUELA LOCATION: [facility] 333- : 40 UNIT #: [id number] AGE: [address]: Leyla Govea MD SEX: M ORDER DR: [id number] [facility] [address] [facility]. [place], [place] [address] [id number] I MR#: [id number] Acc #: [id number] NAME: KIERSTEN BRIZUELA : 1940 SEX: M STUDY DATE/TIME: 04/07/2017 16:24 UNIT: A PCU ROOM: 333 STUDY DESCRIPTION: CT Chest Wo Cont Attending Physician: Leyla Govea M.D. Ordering Physician: Lenard Milan M.D. Primary Care Physician: No Primary Care Physician MEDICAL IMAGING REPORT This report is preliminary unless electronic signature is present EXAM CT of the chest without contrast. INDICATIONS Follow up pneumonia. Shortness of breath since yesterday. TECHNIQUE CT scan of the chest was performed without contrast. Coronal and sagittal reformatted images were obtained. This CT exam was performed with one or more of the following radiation dose reduction techniques: automatic exposure control, adjustment of mA and/or kV according to patient size, and iterative reconstruction. COMPARISON Comparison is made with 03/27/2017. FINDINGS Emphysema. Stable scarring in the left lung apex. The patchy consolidations in the right lung apex have resolved. There is stable irregular presumed scarring within the left upper lobe. There is dense atelectasis/consolidation in both lower lobes, right greater than left. This has worsened since the previous study. There is a loculated-appearing pleural fluid collection in the left lung base which is not significantly changed. There is a small right pleural effusion also not significantly changed. Stable subcarinal adenopathy. Stable lymphadenopathy elsewhere including in the paratracheal region. Stable abnormal soft tissue within the base of the right neck. Stable spiculated density near the left hilum. Limited imaging of the upper abdomen is unremarkable. The bone windows are unremarkable. IMPRESSION 1. There is worsening consolidation/atelectasis in both lower lobes. 2. The nodular infiltrates in the right upper lobe have resolved since STS. [facility] A Service of [facility] RADIOLOGY TEXT RESULTS PATIENT: KIERSTEN BRIZUELA LOCATION: [facility] 333-01 : 40 UNIT #: [id number] AGE: [address]: Leyla Govea MD SEX: M ORDER DR: the previous study. 3. The exam is otherwise unchanged since the previous study. Dictated by... Peter Mak M.D. THIS IS AN ELECTRONICALLY VERIFIED REPORT Peter Mak M.D. at 04/08/2017 8:35 AM MAURO/armida TD: 04/07/2017 22:24 JOB #: [id number] MEDICAL IMAGING REPORT Page 1 of 1 COPY
--- NOTE | ~2017-04-06 | FU ---
[facility] Nutrition Therapy DATE: 04/14/17 Patient: KIERSTEN BRIZUELA Physician: KAY Address: [address] Room/Bed: [address] [place] [address], Zip: [place] [address] Admit Date: 04/06/17 Date of : 40 Height: 6 4 Weight: 136 62 NUTRITION MONITORING/FOLLOW-UP: Reason: Enteral nutrition follow-up Admitting Dx: 76 y/o male admitted with sepsis, HCAP, bloody trach Anthropometrics: Ht: 76", admission wt: 63.4 kg, current wt: 62 kg, BMI: 17 (underweight; based on admission wt), 69% IBW Labs: Glucose 181, POC 235, Na/K WNL, Mg WNL on 04/08, no Phos lab Meds: Novolog (high SSI), Milk of Mg, Miralax, PPI, Prednisone, Vit E, Vit B complex, MVI GI: Last BM 04/13 Skin: Trach site, Stage II pressure ulcer coccyx, no edema Estimated Nutrition Needs: 3682-5682 kcals per day (35-40 kcals/kg admission wt) 95-127 g protein per day (1.5-2.0 g/kg admission wt) Fluids consistent with kcal needs or per MD Assessment: Chart reviewed, events noted. Patient is tolerating EN with Glucerna 1.5 @ goal rate of 65 ml/hr, received only 53% goal volume past 24 hours per pump history, likely due to being NPO yesterday for colonoscopy and EGD which showed mild gastritis and mild diverticulosis. Otherwise tolerating feeds with no GI complaints per PEG tube. Weight is stable, lytes WNL, hyperglycemia remaings however he is on a high SSI. Prednisone likely contributing to high blood sugars. See nutrition goals, dx and recs as stated below. Patient to transfer back to [facility] today. Dx: Underweight r/t head/neck cancer, dysphagia AEB BMI 17, 69% IBW, 2.4 lb weight loss in 10 days - ACTIVE (weight stable however patient has not gained weight towards IBW) Intervention: Optimize insulin regimen Monitoring, Evaluation and Goals: 1. EN to provide > 80% goal volume x 24 hours - NOT MET (received 53% x 24 hours) 2. Lytes, glucose WNL - IN PROGRESS (lytes WNL, glucose POC 181-235) 3. Weight gain towards a healthy BMI range - NOT MET, IN PROGRESS (weight stable) Monitor: Per protocol, criteria to determine if above goals met [facility] Nutrition Therapy DATE: 04/14/17 Patient: KIERSTEN BRIZUELA Physician: KAY Address: [facility] Room/Bed: [address] [place] [address], Zip: [place] [address] Admit Date: 04/06/17 Date of : 40 Height: 6 4 Weight: 136 62 Recommendations: 1. Continue current enteral nutrition regimen: Glucerna 1.5 @ 65 ml/hr. Keep HOB @ 30-45 degrees. 2. Optimize insulin regimen to promote adequate blood glucose control. 3. Please weigh q 3 days for monitoring purposes, as the patient is underweight. Status: Mild nutrition risk Respectfully, Ashleigh Garrison, JUSTEN, LD [facility] and Nutrition[facility] cc: client file
--- NOTE | ~2017-04-06 | CR72 ---
[facility] A Service of [facility] & [facility] RADIOLOGY TEXT RESULTS PATIENT: KIERSTEN BRIZUELA LOCATION: [facility] 333- : 40 UNIT #: [id number] AGE: [address]: Leyla Govea MD SEX: M ORDER DR: [id number] [facility] [address] [facility]. [place], [place] [address] [id number] I MR#: [id number] Acc #: [id number] NAME: KIERSTEN BRIZUELA : 1940 SEX: M STUDY DATE/TIME: 04/13/2017 14:37 UNIT: [address] ROOM: [facility] STUDY DESCRIPTION: CR Chest Single View Portable Attending Physician: Leyla Govea M.D. Ordering Physician: Leyla Govea M.D. Primary Care Physician: No Primary Care Physician MEDICAL IMAGING REPORT This report is preliminary unless electronic signature is present EXAM Chest x-ray 04/13/2017. HISTORY Respiratory failure. Throat cancer. Fever and increased white blood cell count. Shortness of air. TECHNIQUE AP radiographs of the chest. FINDINGS There is persistent infiltrate and volume loss in the posterior lung bases, but this appears improved since the chest x-ray of 04/10/[address] chest of 04/07/2017. Mid and upper lungs are hyperexpanded and clear. Irregular masslike opacity in the left suprahilar region. Heart size normal. Tracheostomy tube in good position. No visible pneumothorax. IMPRESSION Persistent but improving dense infiltrate and atelectasis in the posterior lower lobes. Dictated by... Jeremie Villarreal M.D. THIS IS AN ELECTRONICALLY VERIFIED REPORT Jeremie Villarreal M.D. at 04/13/2017 4:29 PM Krista TD: 04/13/2017 15:56 JOB #: [id number] MEDICAL IMAGING REPORT Page 1 of 1 COPY
--- NOTE | ~2017-04-06 | DS ---
Unit #: [id number] #: [id number] Patient: KIERSTEN BRIZUELA [id number] [address] [id number] I MR#: [id number] NAME: KIERSTEN BRIZUELA ROOM: 333 Age: 76 Sex: M Admission Date: 04/06/2017 : 1940 Discharge Date: Attending Physician: Leyla Govea M.D. Primary Care Physician: No Primary Care Physician DISCHARGE SUMMARY DISCHARGE DIAGNOSES 1. Acute on chronic hypoxic respiratory failure: Patient has tracheostomy. 2. Healthcare-associated pneumonia secondary to Escherichia coli, Gram-negative. 3. History of methicillin resistant Staph aureus pneumonia. 4. Acute on chronic iron deficiency anemia, also acute gastrointestinal bleed with occult positive blood. 5. Oropharyngeal tumor. 6. Mild gastritis. 7. History of lung cancer, following at [facility]. 8. History of laryngeal cancer, status post laryngectomy and tracheostomy. 9. History of dysphagia, status post PEG tube placement. 10. Hypertension, uncontrolled. 11. Diabetes mellitus type 2, uncontrolled. 12. Sacral decubitus ulcer, stage 1, present on admission. 13. Hyperkalemia. 14. Lung nodule, left suprahilar areas. 15. Former smoker. 16. Sepsis from pneumonia. 17. Underweight with moderate calorie malnutrition. 18. Severe protein malnutrition. 19. Metabolic acidosis. 20. Macrocytosis. CONSULTATION 1. Dr. Rivera. 2. Dr. Wong. PROCEDURE The patient had EGD which shows nearly blocking tumor in the oropharyngeal area, mild gastritis. Colonoscopy did not show any active bleeding or polyps. LAB DATA CT angio of the chest shows severe emphysema and chronic bronchitis. Bilateral pleural effusion present, 1.8 x 2.8 cm spiculated mass left lower lobe concerning for primary lung malignancy present. Mediastinal adenopathy could be reactive. No pulmonary embolism. Glucose 188, sodium 135, potassium 3.3, creatinine 0.7, WBC 11.8, hemoglobin 9.0, platelets 452. D-dimer 6691. Unit #: [id number] #: [id number] Patient: KIERSTEN BRIZUELA Sputum cultures are growing E. coli. Blood cultures negative. Stool positive for occult blood. ALLERGIES DANIELA inhibitors and bupropion. DISCHARGE MEDICATIONS 1. Duo-Nebs 3 mL inhalation q.4 p.r.n. 2. Pulmicort 0.5 mg nebulizer b.i.d. 3. Prednisone tapering dose 30 mL through PEG daily. Please taper 10 mg every three days until off. 4. Claritin 10 mg daily. 5. Robinul 1 mg G-tube b.i.d. 6. Aquaphor, apply topically daily. 7. Norvasc 10 mg daily. 8. Metoprolol 25 three times daily. 9. Bisacodyl 5 mg b.i.d. p.r.n. 10. Milk of magnesia 30 mL p.r.n. 11. MiraLAX 17 grams through PEG tube daily. 12. Please note - patient is on antibiotic, Cefaclor 500 mg b.i.d. Stop date today which is 04/17/2017. He will complete his antibiotic course. 13. Simvastatin 40 mg, half tablet through G-tube daily. 14. NovoLog high dose sliding scale q.6. 15. Ferrous sulfate 300 mg through PEG b.i.d. 16. Allopurinol 100 b.i.d. 17. Chlorhexidine 15 mL three times daily. 18. Centrum multivitamin, one tablet daily. 19. Omeprazole 20 daily. 20. Vitamin B 100 daily. 21. Vitamin E daily. HOSPITALIZATION COURSE 76-year-old admitted because of shortness of breath. 1. Acute on chronic hypoxic respiratory failure from pneumonia and chronic obstructive pulmonary disease: Patient received broad spectrum antibiotics. The patient is seen by Dr. Rivera. Currently, he is completing his Cefaclor today. Sputum cultures were growing E. coli. The patient does not have any PE on the CT angio. The patient has tracheostomy, currently on room air saturating 98%. 2. Chronic obstructive pulmonary disease with exacerbation: Started on IV Solu-Medrol and Duo-Nebs, currently breathing better. Continue with prednisone tapering dose and Duo-Nebs. 3. Diabetes mellitus type 2, uncontrolled: Continue with insulin. 4. Sepsis from pneumonia, resolved: 5. Healthcare-associated pneumonia, possible Gram-negative ivan: Sputum growing Escherichia coli. 6. 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 7. Acute on chronic anemia secondary to iron deficiency and blood loss with guaiac positive stool: Patient had an EGD which did not show any active bleeding. Hemoglobin stable. Discussed with , Mrs. Brizuela. She said patient goes to [facility] for his cancer. She wants him to follow [facility], Dr. Poli Franco, for his throat and lung cancer. I discussed with Dr. Rivera. Dr. Rivera is ok Unit #: [id number] #: [id number] Patient: KIERSTEN BRIZUELA for him to go to [facility] for his cancer followup. He needs to follow his cancer doctor in one week time. The patient needs CT of the chest with contrast in two months time to follow up with his throat and lung cancer. Patient will be discharged to rehab. Discharge time taken is 35 minutes. Dictated by... Len Gonzalez/jacek TD: 04/17/2017 12:42 JOB #: [id number] DISCHARGE SUMMARY Page 1 of 1 X Leyla Govea MD X DISCHARGE SUMMARY
--- NOTE | ~2017-04-06 | CR72 ---
[facility] A Service of [facility] & [facility] RADIOLOGY TEXT RESULTS PATIENT: KIERSTEN BRIZUELA LOCATION: [facility] 333-01 : 40 UNIT #: [id number] AGE: [address]: Leyla Govea MD SEX: M ORDER DR: [id number] [facility] [address]. [place], [place] [address] [id number] I MR#: [id number] Acc #: [id number] NAME: KIERSTEN BRIZUELA : 1940 SEX: M STUDY DATE/TIME: 04/10/2017 6:27 UNIT: [address] ROOM: [facility] STUDY DESCRIPTION: CR Chest Single View Portable Attending Physician: Leyla Govea M.D. Ordering Physician: Leyla Govea M.D. Primary Care Physician: No Primary Care Physician MEDICAL IMAGING REPORT This report is preliminary unless electronic signature is present EXAM Portable chest. INDICATION Shortness of air for four days, pneumonia. FINDINGS Portable view of the chest was obtained. The heart size is normal. Left suprahilar spiculated density is unchanged from CT scan 04/06/2017. There is mild extension of the right lower lobe suggesting faint infiltrate. Tracheostomy is in good position. IMPRESSION No change from yesterday's study. There is a spiculated mass in the left suprahilar region and there are mild right lower lobe infiltrates and small bilateral effusions. Dictated by... Berny Sandoval M.D. THIS IS AN ELECTRONICALLY VERIFIED REPORT Benry Sandoval M.D. at 04/10/2017 2:19 PM FEL/gz TD: 04/10/2017 10:34 JOB #: [id number] MEDICAL IMAGING REPORT Page 1 of 1 COPY
--- NOTE | ~2017-04-06 | A ---
[facility] DATE: 04/07/17 Patient: KIERSTEN BRIZUELA Physician: KYA Address: [address] Room/Bed: [address] [place] [address], Zip: [place] [address] Admit Date: 04/06/17 Date of : 40 Height: 6 4 Weight: 139 63.4 NUTRITIONAL ASSESSMENT: REASON: 2 points nutrition screen risk RE: pressure ulcer and home TFs 76 yo male admitted for sepsis, HCAP, blood from [facility] PMH: Chronic respiratory failure, MRSA PNA, chronic anemia, DM, HTN, h/o lung and laryngeal cancer, dysphagia s/p PEG Anthropometrics: Ht: 6'4" Adm wt: 63.4 kg BMI: 17.0 IBW: 91.8 kg, 69% IBW Labs: Ca++ 8.3 Alb 1.8 Accuchecks 107 Meds: Lipitor, lopressor, MOM, bisacodyl, novolog, NaCl, MVI with minerals, miralax, vitamin E, vitamin B complex, protonix I/O & Bowel function: 350/1004, last BM 04/07, PEG in place Skin Integrity: Stage II sacral decubitus ulcer Dry/ flaky skin BLE Scar to abdomen Edema: None noted Estimated Nutrition Needs: 7008-4543 kcals (35-40 kcals/kg) 95-127 grams protein (1.5-2.0 grams/kg) [facility] enteral nutrition regimen: Glucerna 1.5 @ 60 mL/hr x 22 hrs (hold from 10A-12P) + 60 mL Promod BID Provides: 2180 kcals/ 149 grams protein/ 1002 mL 200 mL free H20 flushes q 6 hrs Diet: NPO Assessment: Chart reviewed, events noted. Pt admitted from [facility] for sepsis and HCAP. Pt has a h/o laryngeal and lung cancer with dysphagia s/p PEG placement. RD at [facility] previously assessed this pt 10 days ago during a previous admission (assessed on 03/27). Pt's enteral nutrition regimen at [facility] is noted above. Of note, this regimen does not meet the 100% of the pt's estimated calorie needs. This regimen was previously recommended by [facility] RD ( on 03/27) to run for 24 hrs, and he is receiving the same goal rate for 22 hrs at [facility]. Of note, the pt is receiving additional protein with Promod at the [facility]. RD unable to determine why enteral nutrition is held for 2 hrs at [facility]. Pt has increased nutrient needs [facility] DATE: 04/07/17 Patient: KIERSTEN BRIZUELA Physician: ROSA MEZEKIEL Address: [address] Room/Bed: [address] [place] [address], Zip: [place] [address] Admit Date: 04/06/17 Date of : 40 Height: 6 4 Weight: 139 63.4 d/t cancer and noted stage II pressure ulcer. Pt is not receiving enteral nutrition at this time. RN to inquire about starting enteral nutrition. Pt is clinically underweight with a BMI of 17.0, 69% IBW, and has lost 2.4# in 10 days per weights in Identified. Please see recommendations below. Dx: Inadequate enteral nutrition infusion RT enteral nutrition not yet initiated AEB NPO status, enteral nutrition not started. Underweight RT cancer, dysphagia AEB PEG in place, BMI 17.0, 69% IBW, 2.4# weight loss in 10 days. Intervention: 1. Enteral nutrition Monitoring, Evaluation and Goals: 1. Enteral nutrition; provide >80% goal volume x 24 hrs 2. Improve labs; electrolytes 3. Weight; promote gradual weight gain, prevent weight loss Recommendations: 1. Once medically feasible, recommend initiating enteral nutrition with Glucerna 1.5 @ 20 mL/hr x 24 hrs. Increase by 10 mL q 4 hrs as tolerated to goal of 65 mL/hr x 24 hrs. This will meet 100% of the pt's estimated nutrient needs by providin kcals/ 129 grams protein/ 1184 mL free H20 PLEASE NOTE: If the pt's enteral regimen is to be held for two hours (per the pt's [facility] regimen from 10A-12P), recommend increasing Glucerna 1.5 to 70 mL/hr x 22 hrs to provide: 2310 kcals/ 127 grams protein/ 1169 mL free H20 2. Add Nik BID to the pt's enteral regimen to promote wound healing. This will provide an additional 140 kcals per day. 3. Please note, RD recommending an increase in enteral nutrition goal rate, which will meet the pt's kcal and protein needs without a modular protein supplement (ProMod or Prostat). Please relay this information to the NH upon discharge. 4. Please Ensure HOB is upright at a minimum of 30-45 degrees during EN administration. Pt is at moderate nutritional risk. RD will follow hospital course. Respectfully, [facility] DATE: 04/07/17 Patient: KIERSTEN BRIZUELA Physician: KAY Address: [address] [facility] Room/Bed: [address] [place] [address], Zip: [place] [address] Admit Date: 04/06/17 Date of : 40 Height: 6 4 Weight: [address], LD [facility] cc: client file
--- NOTE | ~2017-04-06 | CO ---
Unit #: [id number] #: [id number] Patient: KIERSTEN BRIZUELA [id number] [facility]. [place], [place] [address] [id number] I MR#: [id number] NAME: KIERSTEN BRIZUELA ROOM: 333 Age: 76 Sex: M Admission Date: 04/06/2017 : 1940 Attending Physician: Leyla Govea M.D. CONSULTATION REPORT HISTORY OF PRESENT ILLNESS Mr. Brizuela has been followed by Dr. Rivera in our group while at the hospital. He was hospitalized here in early March with an MRSA pneumonia and discharged to rehab on for which it was sensitive. He apparently has a history of head and neck cancer with evidence of recurrence. He has been followed at the [facility]. At the end of February, he had a tracheostomy placed and a feeding tube placed for control of his airway and because of aspiration he was sent to rehab to gain strength prior to initiation of treatment for recurrence of his head and neck cancer. As noted, he was hospitalized here with MRSA pneumonia and discharged home on 03/29/2017. According to admission note here, he was said to have some hemoptysis and sent back here to the emergency room and he was admitted by [facility]. He is unaware of coughing up any blood. The nursing staff here is really not suctioned any blood out of there or seen any. His chest x-ray did show hyperinflated lung hunt, flattened diaphragms, thickened nodular density in the left hilum. He had a CT scan of the chest on 03/27/2017 which was quite abnormal showing consolidated changes in the lower lobes with multifocal patchy nodular densities scattered throughout both lungs predominantly in a peribronchial distribution. There is a [id number] right pleural effusion and small left pleural effusion, which appears loculated. There was infiltrative appearing soft-tissue mass within the mediastinum along the pretracheal distribution extending to the pre-carlos and subcarinal areas. He also had an infiltrative soft tissue thickening within his right lower neck. He had evidence for the marked emphysematous changes. He has now been admitted in the emergency room and have a fever of approximately 100.5. He has been started on vancomycin, Zosyn, and tobramycin for possible healthcare-acquired pneumonia. PAST MEDICAL HISTORY Significant for, 1. Head and neck cancer initially diagnosed about 7 years ago now with evidence of recurrence. He is status post tracheostomy and PEG tube and had been residing in rehab. 2. His recent MRSA pneumonia, status post discharged on Bactrim. 3. History of chronic anemia. 4. Chronic respiratory failure. 5. Laryngeal cancer, status post laryngectomy and tracheostomy. 6. Dysphagia with PEG tube placement. 7. Hypertension. 8. Diabetes. 9. Sacral decubitus. PAST SURGICAL HISTORY Unit #: [id number] #: [id number] Patient: KIERSTEN BRIZUELA As noted. ALLERGIES DANIELA inhibitors and Zyban. SOCIAL HISTORY Reformed smoker. Remote alcohol use, none recently. Code status, full code. FAMILY HISTORY No familial lung disease. HOME MEDICATIONS Norvasc, Claritin, Prilosec, vitamin B, vitamin E, ferrous sulfate, chlorhexidine, metoprolol, Zyloprim, simvastatin, MiraLax, centrum, albuterol, Bactrim, glycopyrrolate, ProMod, Aquaphor healing ointment, bisacodyl, Dulcolax, Fleet Enema, Enemeez, milk of magnesia, albuterol, NovoLog. REVIEW OF SYSTEMS Not possible, the patient nonverbal. PHYSICAL EXAMINATION GENERAL: male, in no distress. VITAL SIGNS: Blood pressure is 106/58, pulse 86, respiratory rate 20, afebrile. HEENT: Normocephalic and atraumatic. Pupils are equal, round, and reactive. Sclerae nonicteric. Nasal passages patent. NECK: Tracheostomy in place. No evidence of blood around orifice. LUNGS: Reveal diminished breath sounds, occasional rhonchi. CARDIAC: Regular rate and rhythm. Could not appreciate murmur, rub, or gallop. ABDOMEN: Scaphoid, nontender, PEG tube in place. EXTREMITIES: Without clubbing, cyanosis, or edema. NEUROLOGIC: Awake, appears oriented, follows commands. Moves all extremities. Affect calm. IMPRESSION 1. Possible recurrence of pneumonia. 2. Chronic respiratory failure. 3. History of head and neck cancer recurrence possibly right upper lobe spiculated mass could be metastatic disease could be primary lung cancer workup at the [facility]. PLAN We will go ahead and continue antibiotics. We will check sputum culture, bronchodilator treatment, and supplemental oxygen. We will monitor for hemoptysis. At this point, it does not appear to be any of significance. [facility] and consider [facility] if indicated. Dictated by... Lenard Milan M.D. LEFTY/julienne TD: 04/08/2017 02:53 Unit #: [id number] #: [id number] Patient: KIERSTEN BRIZUELA JOB #: [id number] CONSULTATION REPORT Page 1 of 1 X Lenard Milan MD X CONSULTATION REPORT
--- NOTE | ~2017-04-06 | HP ---
Unit #: [id number] #: [id number] Patient: KIERSTEN BRIZUELA [id number] [address] [id number] E MR#: [id number] NAME: KIERSTEN BRIZUELA ROOM: Age: 76 Sex: M Admission Date: 04/06/2017 : 1940 Attending Physician: Blake Garcia M.D. Primary Care Physician: No Primary Care Physician HISTORY AND PHYSICAL CHIEF COMPLAINT Blood from trach. HISTORY OF PRESENT ILLNESS The patient is a 76-year-old male with past medical history of chronic respiratory failure, lung cancer, laryngeal cancer, dysphagia, hypertension, diabetes and sacral decubitus who presented to the emergency department from the custodial for evaluation of the above. The patient was apparently sent from the custodial for bloody sputum. The patient has no complaints. He denies any shortness of breath. No chest pain. No abdominal pain. Upon arrival in the emergency department the patient's temperature was 100.5, pulse 115, respirations 21. Chest x-ray shows spiculated nodular density in the left suprahilar region concerning for neoplastic disease but cannot rule out infectious disease. There are also several ill-defined patchy densities in the right base consistent with residual pneumonia. The patient was given vancomycin, Zosyn and tobramycin in the emergency department. He is being admitted to [facility] for evaluation and further treatment. PAST MEDICAL HISTORY 1. Admission to [facility] March 26, 2017 for sepsis secondary to MRSA pneumonia. He was discharged to the custodial on Bactrim. 2. Chronic anemia. 3. Chronic respiratory failure. 4. History of lung cancer. 5. Laryngeal cancer status post laryngectomy and tracheostomy. 6. Dysphagia with PEG tube placement. 7. Hypertension. 8. Diabetes. 9. Sacral decubitus. PAST SURGICAL HISTORY 1. Tracheostomy. 2. PEG tube placement. SOCIAL HISTORY The patient is a former smoker and, per record review, has a remote history of alcohol use. Unit #: [id number] #: [id number] Patient: KIERSTEN BRIZUELA CODE STATUS His code status is a full code. FAMILY HISTORY Noncontributory. ALLERGIES Allergies will need to be reviewed and verified. HOME MEDICATIONS Include amlodipine, loratadine, omeprazole, vitamin B, vitamin E, iron, chlorhexidine gluconate, Metoprolol, Allopurinol, simvastatin, MiraLAX, multivitamin, albuterol, Bactrim, glycopyrrolate, protein supplement, Aquaphor, bisacodyl, Fleet enema, Milk of Magnesia, NovoLog sliding scale. Home medications will need to be reviewed and verified. REVIEW OF SYSTEMS A complete review of systems is negative except as indicated in the HPI. PHYSICAL EXAMINATION VITAL SIGNS: Temperature is 100.5, pulse 115, respirations 21, blood pressure 116/57, oxygen saturation was 96% on room air. GENERAL: The patient is an male who is awake and alert, chronically ill appearing but in no acute distress. HEENT: The head is atraumatic. Mucous membranes are dry. NECK: The patient has a tracheostomy in place with thick secretions. CARDIOVASCULAR: Regular rate and rhythm. RESPIRATORY: Lungs demonstrate coarse breath sounds with scattered rhonchi. Breathing is not labored. ABDOMEN: Soft, nontender with bowel sounds present in all 4 quadrants. He does have a PEG tube in place. EXTREMITIES: Extremities are nontender with no pedal edema. NEUROLOGIC: The patient is awake and alert. He is oriented to month and year. He follows commands. PSYCHIATRIC: The patient has a flat affect but is cooperative. SKIN: Skin of examined areas is warm and dry. DIAGNOSTIC TESTS CARDIOVASCULAR: EKG shows sinus tachycardia with a rate of 103 beats per minute. IMAGING: Chest x-ray shows a spiculated nodule in the left suprahilar region concerning for malignancy but cannot rule out infectious or inflammatory etiology. There are also residual ill-defined patchy densities in the right lung base, likely pneumonia. LABORATORY: Comprehensive metabolic panel notable for a sodium of 131, potassium is 5.2, chloride is 98, glucose 164, BUN and creatinine 35 and 1.4 respectively, albumin is 2.3. INR is 1.1. Complete blood count notable for hemoglobin and hematocrit of 8.5 and 25.9 respectively. MCV is 101. Blood cultures from March 26 were no growth after 5 days x2. ASSESSMENT 1. The patient is a 76-year-old male with sepsis. 2. Healthcare-associated pneumonia. The patient received vancomycin, Zosyn and tobramycin in the emergency department. 3. History of MRSA pneumonia during last hospitalization (March 26 through March 29, 2017). The patient was discharged to the custodial Unit #: [id number] #: [id number] Patient: KIERSTEN BRIZUELA on Bactrim. 4. Chronic respiratory failure. 5. Chronic anemia. The patient's hemoglobin was 8.6 on March 29, 2017; it is 8.5 today. 6. History of lung cancer. 7. History of laryngeal cancer status post laryngectomy and tracheostomy. 8. Dysphagia status post PEG tube placement. 9. Hypertension. 10. Diabetes. 11. Sacral decubitus, present on admission. 12. Hyperkalemia. 13. Lung nodule in the left suprahilar area. 14. Former smoker. PLAN 1. Admit to intermediate level. 2. NPO. 3. Blood cultures x2. 4. Sputum culture and sensitivity. 5. Procalcitonin level. 6. Streptococcal and Legionella urine antigens. 7. Titrate oxygen for sats greater than 92%. 8. Vancomycin IV, tobramycin IV, Zosyn IV for healthcare-associated pneumonia pending further workup. 9. DuoNeb q.4 hours p.r.n. 10. Consult Dr. Rivera regarding healthcare-associated pneumonia, chronic respiratory failure and lung nodule. 11. Sepsis protocol with repeat lactic acid. 12. Serial cardiac enzymes. 13. Low dose sliding scale insulin with Accu-Cheks. 14. Wound care consult regarding sacral wound. 15. Repeat BMP later this afternoon to follow up hyperkalemia. 16. Bedrest. 17. Fall precautions. 18. Repeat labs in the morning. 19. Additional workup and consultants based on above. 20. SCDs. 21. Regarding code status, the patient is a full code. 1. Dictated by Len Mathis TD: 04/06/2017 15:21 JOB #: [id number] Unit #: [id number] #: [id number] Patient: KIERSTEN BRIZUELA HISTORY AND PHYSICAL Page 1 of 1 X Susie Hardy MD HISTORY AND PHYSICAL
[~2017-04-06 09:21] MED LIST: ALLERGY10 M1 GT; AMLODIPINE BESY10 MG GT; FERROUS SU220 MG/53 GT; GLUCERNA 1.5 C237 ML GT; METOPROLOL SUCC25 MG GT; MIRALAX17 GM GT; MULTI-VITAMIN-1 EACH GT; NEURONTIN300 MG GT; OMEPRAZOLE20 M1 GT; PERIDEX480 ML PO; SIMVASTATIN40 MG GT; VITAMIN B-1000.4 MG GT; ZYLOPRIM100 MG GT; [UNRECOGNIZED DRUG - OTHER] GT
[2017-04-06 10:50] LABS: BASOPHIL% 0.3 % (0-2.5); EOSINOPHIL% 0.2 % (0.0-7.0); HEMATOCRIT 25.9 % (38.0-50.0); HEMOGLOBIN 8.5 gm/dL (13.0-16.0); LYMPHOCYTE# 0.9 X10e3 (1.0-3.5); LYMPHOCYTE% 9.8 % (17.0-45.0); MEAN CORPUSCULAR HEMOGLOBIN 33.3 PG (28-34); MEAN PLATELET VOLUME 7.4 FL (6.5-11.5); MONOCYTE# 0.9 X10e3 (0-1.0); NEUTROPHIL# 7.5 X10e3 (1.5-7.1); NEUTROPHIL% 79.7 % (40-75); PLATELET COUNT 413 X10e3 (140-420); RED BLOOD COUNT 2.56 X10e (3.90-5.60); RED CELL DISTRIBUTION WIDTH 13.9 % (11.0-15.5); WHITE BLOOD COUNT 9.4 X10e3 (4.0-10.5)
[2017-04-06 10:58] LABS: DIFF IND NO
[2017-04-06 11:02] LABS: INR 1.1; PARTIAL THROMBOPLASTIN TIME 31.5 SECONDS (23.5-31.3); PROTHROMBIN TIME (PATIENT) 11.4 SECONDS (9.6-11.5)
[2017-04-06 11:20] LABS: ALBUMIN SERUM 2.3 g/dL (3.5-5.0); BILIRUBIN, DIRECT 0.1 mg/dL (0.0-0.2); BILIRUBIN,INDIRECT 0.3 mg/dL (0.0-0.9); BILIRUBIN,TOTAL 0.4 mg/dL (0.2-2.0); CALCIUM SERUM 9.2 mg/dL (8.4-10.2); CREATININE SERUM 1.4 mg/dL (0.6-1.4); GLOM FILT RATE Estimated 56.2 mL/min (>60); POTASSIUM 5.2 mmol/L (3.5-5.1)
[2017-04-06] MEDS ORDERED: CENTAMIN L9 MG/15 ML GT (13:59)
[2017-04-06] MEDS ORDERED: ALBUTEROL2.5 MG/3 M NEB (14:00)
[2017-04-06] MEDS ORDERED: ZYLOPRIM100 MG GT (14:01)
[2017-04-06] MEDS ORDERED: BACTRIM 400-801 EACH GT (14:02)
[2017-04-06] MEDS ORDERED: GLYCOPYRROLATE1 MG GT (14:03)
[2017-04-06] MEDS ORDERED: PROMOD946 ML GT (14:03)
[2017-04-06] MEDS ORDERED: AQUAPHOR HEALIN50 GM TOP (14:04)
[2017-04-06] MEDS ORDERED: BISACODYL EC5 M1 PO (14:05)
[2017-04-06] MEDS ORDERED: DULCOLAX10 MG PR (14:06)
[2017-04-06] MEDS ORDERED: FLEET ENEMA133 M1 PR (14:07)
[2017-04-06] MEDS ORDERED: ENEMEEZ PLUS MIN5 ML PR (14:08)
[2017-04-06] MEDS ORDERED: MILK OF MAGNESIA PO (14:09)
[2017-04-06] MEDS ORDERED: ALBUTEROL2.5 MG/3 M INH (14:10)
[2017-04-06] MEDS ORDERED: NOVOLOG FL100 UNIT/1 (14:11)
[2017-04-06 17:16] LABS: CK TOTAL 17 IU/L (36-174)
[2017-04-06 19:16] LABS: BUN/CREATININE RATIO 23.63; CALCIUM SERUM 8.6 mg/dL (8.4-10.2); CREATININE SERUM 1.1 mg/dL (0.6-1.4); GLOM FILT RATE Estimated 75.2 mL/min (>60); POTASSIUM 4.8 mmol/L (3.5-5.1)
[2017-04-07 00:42] LABS: URINE APPEARANCE CLEAR; URINE BILIRUBIN NEG (NEG); URINE BLOOD NEG (NEG); URINE COLOR YELLOW; URINE GLUCOSE NEG (NEG); URINE KETONE NEG (NEG); URINE LEUKOCYTE ESTERASE NEG (NEG); URINE NITRATE NEG (NEG); URINE PROTEIN NEG (NEG); URINE SPECIFIC GRAVITY 1.015 (1.003-1.035)
[2017-04-07 08:01] LABS: HEMATOCRIT 26.7 % (38.0-50.0); HEMOGLOBIN 8.2 gm/dL (13.0-16.0); MEAN CELL VOLUME 106.7 FL (83-96); MEAN CORPUSCULAR HEMOGLOBIN 32.8 PG (28-34); MEAN CORPUSCULAR HGB CONC 30.8 g/dL (30-36); MEAN PLATELET VOLUME 7.2 FL (6.5-11.5); RED BLOOD COUNT 2.5 X10e (3.90-5.60); RED CELL DISTRIBUTION WIDTH 14.2 % (11.0-15.5); WHITE BLOOD COUNT 6.1 X10e3 (4.0-10.5)
[2017-04-07 09:05] LABS: ALBUMIN SERUM 1.8 g/dL (3.5-5.0); BILIRUBIN,TOTAL 0.4 mg/dL (0.2-2.0); CALCIUM SERUM 8.3 mg/dL (8.4-10.2); GLOM FILT RATE Estimated 84.4 mL/min (>60); POTASSIUM 4.7 mmol/L (3.5-5.1); PROTEIN TOTAL SERUM 6.1 g/dL (6.0-8.3)
[2017-04-07 10:35] LABS: LEGIONELLA AG URINE NEG (NEG)
[2017-04-08 08:02] LABS: HEMATOCRIT 24.7 % (38.0-50.0); HEMOGLOBIN 8.1 gm/dL (13.0-16.0); MEAN CORPUSCULAR HEMOGLOBIN 32.8 PG (28-34); MEAN CORPUSCULAR HGB CONC 32.9 g/dL (30-36); MEAN PLATELET VOLUME 6.7 FL (6.5-11.5); RED BLOOD COUNT 2.48 X10e (3.90-5.60); WHITE BLOOD COUNT 6.3 X10e3 (4.0-10.5)
[2017-04-08 08:06] LABS: MEAN CELL VOLUME 99.8 FL (83-96)
[2017-04-08 08:53] LABS: FOLATE (FOLIC ACID) >23.6 ng/mL (>5.8)
[2017-04-08 09:05] LABS: ALBUMIN SERUM 1.9 g/dL (3.5-5.0); ALKALINE PHOSPHATASE 92 U/L (32-92); ALT (SGPT) 51 U/L (10-40); AST (SGOT) 43 U/L (10-42); BILIRUBIN,TOTAL 0.6 mg/dL (0.2-2.0); BLOOD UREA NITROGEN 19 mg/dL (9-23); BUN/CREATININE RATIO 17.27; CALCIUM SERUM 8.5 mg/dL (8.4-10.2); CARBON DIOXIDE 23 mmol/L (22-31); CHLORIDE 108 mmol/L (100-111); CREATININE SERUM 1.1 mg/dL (0.6-1.4); GLOM FILT RATE Estimated 75.2 mL/min (>60); GLUCOSE FASTING 112 mg/dL (70-110); MAGNESIUM 2.4 mg/dL (1.6-3.0); POTASSIUM 4.3 mmol/L (3.5-5.1); PROTEIN TOTAL SERUM 6.9 g/dL (6.0-8.3); SODIUM 139 mmol/L (135-145)
[2017-04-09 07:57] LABS: HEMATOCRIT 22.7 % (38.0-50.0); HEMOGLOBIN 7.4 gm/dL (13.0-16.0); MEAN CELL VOLUME 100.5 FL (83-96); MEAN CORPUSCULAR HEMOGLOBIN 32.9 PG (28-34); MEAN CORPUSCULAR HGB CONC 32.7 g/dL (30-36); RED BLOOD COUNT 2.26 X10e (3.90-5.60); RED CELL DISTRIBUTION WIDTH 13.7 % (11.0-15.5); WHITE BLOOD COUNT 6.3 X10e3 (4.0-10.5)
[2017-04-09 08:30] LABS: BUN/CREATININE RATIO 16.66; CALCIUM SERUM 8.6 mg/dL (8.4-10.2); CREATININE SERUM 0.9 mg/dL (0.6-1.4); GLOM FILT RATE Estimated 95.8 mL/min (>60); POTASSIUM 3.6 mmol/L (3.5-5.1)
[2017-04-10 06:55] LABS: HEMATOCRIT 22.9 % (38.0-50.0); HEMOGLOBIN 7.4 gm/dL (13.0-16.0); MEAN CELL VOLUME 100.2 FL (83-96); MEAN CORPUSCULAR HEMOGLOBIN 32.5 PG (28-34); MEAN CORPUSCULAR HGB CONC 32.4 g/dL (30-36); RED BLOOD COUNT 2.28 X10e (3.90-5.60); RED CELL DISTRIBUTION WIDTH 13.9 % (11.0-15.5); WHITE BLOOD COUNT 7.5 X10e3 (4.0-10.5)
[2017-04-10 07:27] LABS: BUN/CREATININE RATIO 22.22; CALCIUM SERUM 8.4 mg/dL (8.4-10.2); CREATININE SERUM 0.9 mg/dL (0.6-1.4); GLOM FILT RATE Estimated 95.8 mL/min (>60); POTASSIUM 4.1 mmol/L (3.5-5.1)
[2017-04-10 12:09] LABS: IRON SERUM 10 ug/dL (45-182); TOTAL IRON BINDING CAPACITY 135 ug/dL (252-460); TRANSFERRIN 97 mg/dL (180-329); TRANSFERRIN SATURATION 7 % (20-50)
[2017-04-11 14:25] LABS: HEMATOCRIT 25.9 % (38.0-50.0); HEMOGLOBIN 8.1 gm/dL (13.0-16.0); MEAN CORPUSCULAR HEMOGLOBIN 32.9 PG (28-34); MEAN CORPUSCULAR HGB CONC 31.2 g/dL (30-36); MEAN PLATELET VOLUME 7.3 FL (6.5-11.5); RED BLOOD COUNT 2.45 X10e (3.90-5.60); RED CELL DISTRIBUTION WIDTH 14.6 % (11.0-15.5); WHITE BLOOD COUNT 9.4 X10e3 (4.0-10.5)
[2017-04-11 14:35] LABS: GLOM FILT RATE Estimated 84.4 mL/min (>60); POTASSIUM 5.3 mmol/L (3.5-5.1)
[2017-04-11 14:41] LABS: MEAN CELL VOLUME 105.6 FL (83-96)
[2017-04-12 05:31] LABS: HEMATOCRIT 22.6 % (38.0-50.0); HEMOGLOBIN 7.2 gm/dL (13.0-16.0); MEAN CORPUSCULAR HEMOGLOBIN 31.9 PG (28-34); MEAN CORPUSCULAR HGB CONC 31.9 g/dL (30-36); MEAN PLATELET VOLUME 7.1 FL (6.5-11.5); RED BLOOD COUNT 2.26 X10e (3.90-5.60); RED CELL DISTRIBUTION WIDTH 13.9 % (11.0-15.5)
[2017-04-12 05:33] LABS: MEAN CELL VOLUME 100.2 FL (83-96); WHITE BLOOD COUNT 14.5 X10e3 (4.0-10.5)
[2017-04-12 06:19] LABS: BUN/CREATININE RATIO 42.5; CALCIUM SERUM 8.8 mg/dL (8.4-10.2); CREATININE SERUM 0.8 mg/dL (0.6-1.4); GLOM FILT RATE Estimated 100.6 mL/min (>60); POTASSIUM 4.6 mmol/L (3.5-5.1)
[2017-04-13 07:40] LABS: HEMATOCRIT 27.7 % (38.0-50.0); MEAN CORPUSCULAR HEMOGLOBIN 31.6 PG (28-34); MEAN CORPUSCULAR HGB CONC 32.6 g/dL (30-36); MEAN PLATELET VOLUME 6.7 FL (6.5-11.5); RED BLOOD COUNT 2.86 X10e (3.90-5.60); RED CELL DISTRIBUTION WIDTH 14.6 % (11.0-15.5); WHITE BLOOD COUNT 15.2 X10e3 (4.0-10.5)
[2017-04-13 07:42] LABS: MEAN CELL VOLUME 96.9 FL (83-96)
[2017-04-13 08:22] LABS: BILIRUBIN,TOTAL 0.5 mg/dL (0.2-2.0); BUN/CREATININE RATIO 36.66; CREATININE SERUM 0.6 mg/dL (0.6-1.4); GLOM FILT RATE Estimated 113.2 mL/min (>60)
[2017-04-13 08:24] LABS: POTASSIUM 2.9 mmol/L (3.5-5.1)
[2017-04-13 16:14] LABS: BUN/CREATININE RATIO 27.14; CALCIUM SERUM 9.2 mg/dL (8.4-10.2); CREATININE SERUM 0.7 mg/dL (0.6-1.4); GLOM FILT RATE Estimated 106.3 mL/min (>60); POTASSIUM 4.1 mmol/L (3.5-5.1)
[2017-04-13 23:09] LABS: URINE SOURCE CATH
[2017-04-13 23:19] LABS: URINE APPEARANCE CLOUDY; URINE BILIRUBIN NEG (NEG); URINE BLOOD TRACE (NEG); URINE COLOR DK YELLOW; URINE GLUCOSE NEG (NEG); URINE KETONE NEG (NEG); URINE LEUKOCYTE ESTERASE 3+ (NEG); URINE NITRATE NEG (NEG); URINE PH 7.5 (5-8); URINE PROTEIN TRACE (NEG); URINE SPECIFIC GRAVITY 1.018 (1.003-1.035); URINE UROBILINOGEN 0.2 MG/DL (NEG)
[2017-04-13 23:22] LABS: URINE BACTERIA AUWI NEG (NEGATIVE); URINE SQUAMOUS EPITHELIAL CELL NONE SEEN /[HPF]; UWBCS1 AUWI 200-300 (0-5)
[2017-04-13 23:37] LABS: URINE YEAST PRESENT
[2017-04-14 13:10] LABS: BASOPHIL# 0.1 X10e3 (0-0.3); BASOPHIL% 0.5 % (0-2.5); EOSINOPHIL% 0.1 % (0.0-7.0); HEMATOCRIT 34.1 % (38.0-50.0); HEMOGLOBIN 10.8 gm/dL (13.0-16.0); LYMPHOCYTE# 1.8 X10e3 (1.0-3.5); LYMPHOCYTE% 12.7 % (17.0-45.0); MEAN CELL VOLUME 99.8 FL (83-96); MEAN CORPUSCULAR HEMOGLOBIN 31.6 PG (28-34); MEAN CORPUSCULAR HGB CONC 31.7 g/dL (30-36); MEAN PLATELET VOLUME 7.2 FL (6.5-11.5); MONOCYTE# 0.5 X10e3 (0-1.0); MONOCYTE% 3.8 % (3.0-12.0); NEUTROPHIL% 82.9 % (40-75); PLATELET COUNT 556 X10e3 (140-420); RED BLOOD COUNT 3.41 X10e (3.90-5.60); RED CELL DISTRIBUTION WIDTH 14.9 % (11.0-15.5); WHITE BLOOD COUNT 14.5 X10e3 (4.0-10.5)
[2017-04-14 13:16] LABS: ALBUMIN SERUM 2.4 g/dL (3.5-5.0); BILIRUBIN,TOTAL 0.2 mg/dL (0.2-2.0); CALCIUM SERUM 9.2 mg/dL (8.4-10.2); GLOM FILT RATE Estimated 84.4 mL/min (>60); MAGNESIUM 2.1 mg/dL (1.6-3.0); POTASSIUM 4.1 mmol/L (3.5-5.1); PROTEIN TOTAL SERUM 8.3 g/dL (6.0-8.3)
[2017-04-14 13:29] LABS: DIFF IND NO
[2017-04-15 08:25] LABS: HEMATOCRIT 29.9 % (38.0-50.0); HEMOGLOBIN 9.6 gm/dL (13.0-16.0); MEAN CELL VOLUME 99.8 FL (83-96); MEAN CORPUSCULAR HEMOGLOBIN 31.9 PG (28-34); MEAN PLATELET VOLUME 7.2 FL (6.5-11.5)
[2017-04-15 08:52] LABS: ALBUMIN SERUM 2.1 g/dL (3.5-5.0); BILIRUBIN,TOTAL 0.3 mg/dL (0.2-2.0); BUN/CREATININE RATIO 33.75; CALCIUM SERUM 8.7 mg/dL (8.4-10.2); CREATININE SERUM 0.8 mg/dL (0.6-1.4); GLOM FILT RATE Estimated 100.6 mL/min (>60); POTASSIUM 4.2 mmol/L (3.5-5.1); PROTEIN TOTAL SERUM 7.3 g/dL (6.0-8.3)
[2017-04-16 05:47] LABS: MEAN CELL VOLUME 97.9 FL (83-96); MEAN CORPUSCULAR HEMOGLOBIN 31.3 PG (28-34); MEAN PLATELET VOLUME 7.2 FL (6.5-11.5); RED BLOOD COUNT 2.86 X10e (3.90-5.60); WHITE BLOOD COUNT 11.8 X10e3 (4.0-10.5)
[2017-04-16 06:43] LABS: CALCIUM SERUM 8.5 mg/dL (8.4-10.2); CREATININE SERUM 0.7 mg/dL (0.6-1.4); GLOM FILT RATE Estimated 106.3 mL/min (>60); POTASSIUM 3.3 mmol/L (3.5-5.1)
== END 2017-04-17 15:35 | DRG 871 ==
LOC: CED 09:21 → C3A PCU 15:05 → CEDOF 15:05 → CED 15:31 → CEDOF 15:31 → C3A PCU 15:31 → CEDOF 17:14 → C3A PCU 04-07 06:37
PROVIDERS: Emergency Medicine; Family Medicine; Internal Medicine
PROC: 30233N1 Transfusion of Nonautologous Red Blood Cells into Peripheral Vein, Percutaneous Approach (ICD-10-PCS; 2017-04-06)
PROC: 0DJ08ZZ Inspection of Upper Intestinal Tract, Via Natural or Artificial Opening Endoscopic (ICD-10-PCS; 2017-04-13)
PROC: 0DJD8ZZ Inspection of Lower Intestinal Tract, Via Natural or Artificial Opening Endoscopic (ICD-10-PCS; 2017-04-13)
PROC: B32SYZZ Computerized Tomography (CT Scan) of Right Pulmonary Artery using Other Contrast (ICD-10-PCS; principal; 2017-04-14)
PROC: B32TYZZ Computerized Tomography (CT Scan) of Left Pulmonary Artery using Other Contrast (ICD-10-PCS; 2017-04-14)
DX: A41.51 Sepsis due to Escherichia coli [E. coli] (principal); J15.5 Pneumonia due to Escherichia coli; J96.21 Acute and chronic respiratory failure with hypoxia; E43 Unspecified severe protein-calorie malnutrition; L89.151 Pressure ulcer of sacral region, stage 1; K92.2 Gastrointestinal hemorrhage, unspecified; Z93.0 Tracheostomy status; E11.65 Type 2 diabetes mellitus with hyperglycemia; E87.5 Hyperkalemia; J44.1 Chronic obstructive pulmonary disease with (acute) exacerbation; D50.9 Iron deficiency anemia, unspecified; Z86.14 Personal history of Methicillin resistant Staphylococcus aureus infection; K29.70 Gastritis, unspecified, without bleeding; Z85.118 Personal history of other malignant neoplasm of bronchus and lung; Z85.21 Personal history of malignant neoplasm of larynx; I10 Essential (primary) hypertension; Z87.891 Personal history of nicotine dependence; D75.89 Other specified diseases of blood and blood-forming organs; R13.10 Dysphagia, unspecified; K57.90 Diverticulosis of intestine, part unspecified, without perforation or abscess without bleeding; K64.9 Unspecified hemorrhoids; D49.0 Neoplasm of unspecified behavior of digestive system; E87.6 Hypokalemia; D72.829 Elevated white blood cell count, unspecified; T38.0X5A Adverse effect of glucocorticoids and synthetic analogues, initial encounter
CPT/HCPCS: 36415; 71010; 71250; 71275; 80048; 80053; 80076; 80200; 80202; 81003; 82274; 82308; 82550; 82607; 82728; 82746; 82947; 83540; 83550; 83605; 83735; 83880; 84484; 85025; 85027; 85379; 85610; 85730; 86850; 86900; 86901; 86923; 87040; 87070; 87077; 87086; 87186; 87205; 87449; 87899; 93005; 94640; 94760; 97110; 97116; 97163; 97530; 97535; 99285; G8978-GP; G8979-GP; J0696; J1815; J2543; J2920; J3260; J3370; P9016; Q9967

== ENCOUNTER 2017-04-20 21:26 | Inpatient (IN) | payer MEDICARE ==
--- NOTE | ~2017-04-20 | EKG ---
PATIENT: KIERSTEN BRIZUELA UNIT #: [id number] Ventricular Rate: 115 BPM Atrial Rate: 115 BPM P-R Interval: 146 ms QRS Duration: 118 ms Q-T Interval: 352 ms QTC Calculation(Bezet): 486 ms P [place]: 78 degrees Calculated R [place]: -76 degrees Calculated T [place]: 61 degrees Diagnosis Line: Sinus tachycardia Diagnosis Line: Low voltage QRS Diagnosis Line: Right bundle branch block Diagnosis Line: Left anterior fascicular block Diagnosis Line: Bifascicular block Diagnosis Line: Abnormal ECG Diagnosis Line: When compared with ECG of 06-APR-2017 10:04, Diagnosis Line: Non-specific change in ST segment in Anterior Diagnosis Line: leads Diagnosis Line: T wave inversion now evident in Anterior leads Diagnosis Line: Confirmed by JAY FARNSWORTH MD ([id number]) on Diagnosis Line: 04/21/2017 1:36:40 PM INTERPRETING MD: DAJA BEARDEN
--- NOTE | ~2017-04-20 | CO ---
Unit #: [id number] #: [id number] Patient: KIERSTEN BRIZUELA [id number] [address] [place], [place] [address] [id number] I MR#: [id number] NAME: KIERSTEN BRIZUELA ROOM: 566 Age: 76 Sex: M Admission Date: 04/21/2017 : 1940 Attending Physician: Leyla Govea M.D. Consultation Date: 04/22/2017 CONSULTATION REPORT REASON FOR CONSULTATION Nonsustained ventricular tachycardia. HISTORY OF PRESENT ILLNESS This is a 76-year-old male with a past medical history of COPD and was recently hospitalized for sepsis and has a history of laryngeal cancer, status post laryngectomy and tracheostomy because of the blocking tumor in his oropharyngeal area. He also has a PEG placement. He lives in a [facility] at this time. He has a history of lung cancer in the past and also has sacral decubitus. The patient was brought into the hospital on this admission with increased shortness of breath. The evening before admission, nurses at the [facility] noticed the patient appeared to be more short of breath and he had been having thickened purulent secretions. He also had some diarrhea. He denies any chest pain; pain in his neck, bilateral jaws, shoulders, arms, or elbow. No palpitations. No dizziness, presyncope, or syncope. No reported cough, fever, or chills. They did a chest x-ray at the [facility]p that revealed a mild right-sided infiltrate and the patient was sent to this facility. The patient in the emergency room did appear to have purulent secretions from his tracheostomy and also his breathing appeared to be quite labored. His blood pressure was 102/60, heart rate was 120, respirations 35, temperature 98.9, and O2 saturation was 99% on the nonrebreather mask. He did complain of diarrhea. He was given a bolus of a liter of saline and 125 mg of IV Solu-Medrol and started on Zosyn, tobramycin, and vancomycin. His lactate level was elevated, although his chest x-ray did not show definite new infiltrate. His EKG showed sinus tachycardia with a rate of 115 beats per minute. He does known to have a right bundle-branch block, which was not new. Since admission, the patient is being treated for sepsis, probable pneumonia. On his telemetry, he did have appear to look like a wide-complex tachycardia with ventricular rate being about 166 beats per minute, likely nonsustained ventricular tachycardia. The patient on interview and exam, was asymptomatic with this rhythm. The patient's initial labs, his BUN was 26 with creatinine 0.8. His potassium was 3.4, magnesium level was done later, was 1.6. Initial cardiac enzymes are negative. BNP on admission was 171. The patient's hemoglobin was 8.6, hematocrit 26.7, WBCs are 24.1 with platelets of 280. Influenza A and B were negative. Urinalysis showed 2+ leukocyte esterase, 1.0 urobilinogen, 25 to 50 wbc's, and yeast was present. Urine, sputum, and blood cultures are pending. EKG as mentioned shows sinus tachycardia with 115 beats per minute, right bundle-branch block, and left anterior fascicular block. Cardiology was consulted to assist in evaluation and Unit #: [id number] #: [id number] Patient: KIERSTEN BRIZUELA management. PAST MEDICAL HISTORY 1. History of laryngeal cancer, status post laryngectomy and tracheostomy. An EGD recently performed for GI bleed and it revealed nearly blocking tumor in the oropharyngeal area. 2. History of lung cancer. 3. COPD. 4. Chronic anemia. 5. Chronic respiratory failure. 6. Sepsis requiring admission on 03/26/2017 due to MRSA pneumonia. 7. EGD, mild esophagitis and gastritis noted. 8. Mild diverticular disease per recent colonoscopy. 9. Dysphagia with PEG tube placement. 10. Recent CT of the chest reveals spiculated left lower lobe mass, could be primary malignancy versus metastatic disease. 11. Hypertension. 12. Diabetes mellitus type 2. 13. Chronic iron deficiency anemia. 14. Sacral decubitus ulcer. 15. Lung nodule in left suprahilar area. 16. History of lung cancer. PAST SURGICAL HISTORY 1. Tracheostomy placement. 2. PEG-tube placement. 3. Status post laryngectomy and tracheostomy. Also, recent EGD showed near blocking tumor in oropharyngeal area. HOME MEDICATIONS 1. Amlodipine 10 mg per G-tube daily. 2. Loratadine 10 mg per G-tube daily. 3. Omeprazole 20 mg per G-tube daily. 4. one p.o. daily. 5. Vitamin E one tablet per G-tube daily. 6. Ferrous sulfate one tablet per G-tube daily. 7. Chlorhexidine gluconate 15 mL p.o. three times daily swish and spit. 8. Metoprolol 25 mg per G-tube three times daily. 9. Zyloprim 300 mg one tablet per G-tube twice daily. 10. Simvastatin 20 mg per G-tube daily. 11. MiraLAX 17 g per G-tube daily p.r.n. for constipation. 12. Multivitamin one tablet p.o. twice daily per G-tube daily. 13. Albuterol sulfate inhalation four times daily p.r.n. 14. Bactrim 400/80 one tablet per G-tube twice daily for seven days that was on admission. 15. Glycopyrrolate one tablet per G-tube twice daily. 16. Promethazine 60 mL per G-tube twice daily. 17. Aquaphor Healing Ointment topically daily. 18. Bisacodyl one tablet p.o. twice daily p.r.n. for constipation. 19. Fleet enema p.r.n. for constipation. 20. Milk of magnesia 30 mL p.o. daily for constipation p.r.n. 21. Albuterol sulfate inhalation every 2 hours p.r.n. for respiratory distress. 22. NovoLog sliding scale. ALLERGIES DANIELA inhibitors, bupropion from Zyban. Unit #: [id number] #: [id number] Patient: KIERSTEN BRIZUELA SOCIAL HISTORY The patient is currently living in a usp. He is a former smoker and does not drink alcohol. No illicit drug abuse. REVIEW OF SYSTEMS See details in HPI. PHYSICAL EXAMINATION GENERAL: Mr. Brizuela is a 76-year-old male, in no acute respiratory distress. He does have some mild dyspnea with rest and especially with conversation. VITAL SIGNS: Heart rate on admission was 116, respirations 34, temperature is 98.9, blood pressure was 102/60 and 125/57 after 2 L of IV fluids. O2 saturations are 91% on 9 L on trach mask. NECK: The patient has a trach in place and some nodularity in the right side of neck. LUNGS: Very diminished. Mild expiratory wheezes throughout. HEART: S1 and S2. Regular rate and rhythm. Tachycardic on exam initially. ABDOMEN: Soft. Nontender. There is a PEG tube in the upper abdomen area. EXTREMITIES: Pedal pulses are weak, but palpable. No edema. NEUROLOGICAL: The patient is awake, alert, and oriented. DIAGNOSTIC STUDIES LABORATORY RESULTS: Glucose is 231, BUN 26, creatinine 0.8, EGFR is 100.6. Sodium 137, potassium is 3.4, chloride is 106, CO2 is 21, calcium is 9.0, magnesium is 2.0, total protein 7.3, albumin 2.3, bilirubin total 0.7, AST 22, ALT 17, and alkaline phosphatase is 81. BNP is 171. Initial cardiac enzymes; CK total is 13, troponin is less than 0.03. Lactic acid is 1.3. WBCs are 24.1, hemoglobin 8.6, hematocrit 26.7, and platelets is 263. Influenza A and B are negative. Urinalysis shows 2+ leukocyte esterase, 1.0 urobilinogen, 25 to 50 wbc's, yeast is present. INR is 1.1. Chest x-ray shows increased interstitial markings in both lungs similar to the recent CT scan, emphysema, small bilateral pleural effusions. EKG shows sinus tachycardia with heart rate of 115 beats per minute, right bundle-branch block, left anterior fascicular block, and poor R-wave progression. On telemetry showed a nonsustained run of ventricular tachycardia. IMPRESSION 1. [id number] respiratory failure, hypoxic respiratory failure, exacerbation of chronic obstructive pulmonary disease. Methicillin-resistant Staphylococcus aureus, positive sputum in the recent past, likely recurrent. 2. Status post laryngectomy and there is also an EGD shows a tumor blocking oropharyngeal area. Unit #: [id number] #: [id number] Patient: KIERSTEN BRIZUELA 3. PEG-tube placement. 4. Nonsustained ventricular tachycardia. 5. History of lung cancer. 6. Sacral decubitus. 7. Chronic anemia. 8. Esophagitis and gastritis on last EGD and has diverticular disease. 9. Recent CT of the chest reveals a spiculated left lower lobe mass, it could be a primary malignancy versus metastatic disease. 10. Hypertension. 11. Diabetes mellitus type 2. 12. Reformed smoker. 13. Right bundle-branch block on EKG, which is not new. 14. Urinary tract infection. PLAN 1. Cardiology consult to evaluate patient's nonsustained ventricular tachycardia. 2. The patient was asymptomatic. The patient's potassium level was low, that is being supplemented. Check his magnesium level but in the meantime since he had a long run, which is approximately 18 to 20 beat, to give 2 g of IV Mag if his potassium level is low. 3. We will increase his metoprolol to 50 mg p.o. twice daily with parameters. 4. On exam, there is no signs or symptoms of acute congestive heart failure or unstable angina. The patient has a right bundle-branch on his EKG. 5. Obtain a 2D echo to evaluate his LV function and valves, does not appear to have a recent echo. 6. The patient is being treated for pneumonia, possible MRSA. 7. Continue on antibiotics. 8. Possible yeast. 9. Urine culture is pending. 10. The patient and family do want conservative medical management. He is a do not resuscitate status. 11. Further recommendations pending. Thank you very much for allowing to assist in the care. This patient will be followed by [facility], who was consulted. Dictated by... Zari Thornton/julienne TD: 04/25/2017 14:06 JOB #: [id number] CONSULTATION REPORT Page 1 of 1 X Svetlana Galloway APRN X CONSULTATION REPORT
--- NOTE | ~2017-04-20 | DS ---
Unit #: [id number] #: [id number] Patient: KIERSTEN BRIZUELA [id number] [address] [address] [id number] MR#: [id number] NAME: KIERSTEN BRIZUELA ROOM: [facility] Age: 76 Sex: M Admission Date: 04/21/2017 : 1940 Discharge Date: Attending Physician: Leyla Govea M.D. Primary Care Physician: No Primary Care Physician DISCHARGE SUMMARY DISCHARGE DIAGNOSES 1. Acute on chronic hypoxic respiratory failure in patient with a tracheostomy. 2. Sepsis, present on admission. 3. Methicillin resistant Staph aureus pneumonia. 4. Severe secretions through tracheostomy chronic. 5. Diabetes mellitus type 2 uncontrolled. 6. Underweight. 7. Moderate calorie malnutrition. 8. Severe protein malnutrition. 9. Diarrhea, no Clostridium difficile. 10. Metabolic acidosis. 11. History of lung cancer. 12. History of laryngeal cancer, status post laryngectomy and tracheostomy. 13. Recent esophagogastroduodenoscopy shows near blocking tumor lower pharyngeal area. 14. Mild gastritis and esophagitis. 15. Mild diverticular disease. 16. Hypertension. 17. Sacral decubitus ulcer present on admission. 18. Status post percutaneous endoscopic gastrostomy tube placement. CONSULTANTS Dr. Rivera. PROCEDURES AND LABORATORY DATA 1. Sodium 135, potassium 3.9, creatinine 0.7, blood sugar 253, carbon dioxide 20. 2. WBC 22.0, hemoglobin 9.3, platelets 280. 3. Sputum cultures are growing MRSA. 4. Urine culture are yeast. ALLERGIES DANIELA inhibitors and bupropion. DISCHARGE MEDICATIONS 1. DuoNeb 3 mL q.4. 2. DuoNeb 3 mL inhalation q. 2 p.r.n. 3. Pulmicort 0.5 mg nebulizer b.i.d. 4. Prednisone tapering dose 30 mg daily through the PEG, taper 10 mg every 4 days until off. 5. Tylenol 650 mg q.6 p.r.n.. 6. Bismuth suspension 30 mL q.6 p.r.n. diarrhea. Unit #: [id number] #: [id number] Patient: KIERSTEN BRIZUELA 7. Claritin 10 mg p.o. daily. 8. Robinul 1 mg through PEG b.i.d. 9. Aquaphor applied topically daily. 10. Lopressor 50 through PEG b.i.d. 11. Simvastatin 40 1/2 tablet daily. 12. Levemir 10 units subcu in the morning. 13. Medium dose sliding scale a.c. and h.s. 14. Ferrous gluconate 325 p.o. b.i.d. 15. Allopurinol 100 b.i.d. 16. Florastor 250 b.i.d. 17. Chlorhexidine oral rinse 3 times daily. 18. Centrum liquid 50 mL daily. 19. Omeprazole 20 daily. 20. Potassium 40 mEq through PEG daily for two more days. 21. Fluconazole 100 mg through PEG 4 more days. 22. Zyvox 600 mg through PEG b.i.d. for 7 more days. HOSPITAL COURSE 76-year-old lady admitted with shortness of breath and diarrhea. Acute on chronic hypoxic respiratory failure: Patient on trach, currently on room air. Sepsis from MRSA pneumonia, currently resolved. MRSA pneumonia: Patent was on IV vancomycin and later changed to Zyvox as per Dr. Rivrea's recommendations. Severe tracheal secretions likely from worsening laryngeal cancer. Continue with suctioning every 1 hour at rehab. Very poor prognosis. Patient is having recurrent pneumonia from it. He needs to see [facility] for his cancer. Patient is DNR, likely a Hospice candidate. Dysphagia: Status post PEG tube. Continue with feeding through that. Diabetes mellitus, type 2 uncontrolled: Continue with Levemir. Diarrhea: No C. diff. Discussed with the patient and , Mrs. Brizuela and they agree for DNR. Patient needs suctioning every 1 hour to prevent recurrent pneumonia. Patient needs to keep his head in 45 degrees all the time. Patient to follow [facility] for his throat cancer in one week time. Very poor prognosis, likely Hospice candidate. M.D. at rehab needs to talk to the family for possible hospice and palliative care. Discharge time taken is 40 minutes. Dictated by... Len Gonzalez Unit #: [id number] #: [id number] Patient: KIERSTEN BRIZUELA TD: 04/24/2017 13:27 JOB #: [id number] DISCHARGE SUMMARY Page 1 of 1 X Leyla Govea MD DISCHARGE SUMMARY
--- NOTE | ~2017-04-20 | CR72 ---
[facility] A Service of [facility] RADIOLOGY TEXT RESULTS PATIENT: KIERSTEN BRIZUELA LOCATION: [facility] [address] : [birth year] UNIT #: [id number] AGE: [address]: Leyla Govea MD SEX: M ORDER DR: [id number] [facility] [address] [place], [place] [address] [id number] I MR#: [id number] Acc #: [id number] NAME: KIERSTEN BRIZUELA : 1940 SEX: M STUDY DATE/TIME: 04/22/2017 23:47 UNIT: [facility] ROOM: [facility] STUDY DESCRIPTION: CR Chest Single View Portable Attending Physician: Leyla Govea M.D. Ordering Physician: Leyla Govea M.D. Primary Care Physician: No Primary Care Physician MEDICAL IMAGING REPORT This report is preliminary unless electronic signature is present EXAM Portable chest INDICATIONS PICC line placement. Evaluate positioning. PROCEDURE Frontal view chest. COMPARISON 04/20/2017 FINDINGS Right approach PICC line terminates distal SVC. No visible pneumothorax. Stable heart size. No new dense consolidation. IMPRESSION Right approach PICC line distal SVC. No pneumothorax. Otherwise stable chest Dictated by... Bairon Zepeda M.D. THIS IS AN ELECTRONICALLY VERIFIED REPORT Bairon Zepeda M.D. at 04/23/2017 10:04 PM JENNIFER/bryon TD: 04/23/2017 01:40 JOB #: [id number] MEDICAL IMAGING REPORT Page 1 of 1 COPY
--- NOTE | ~2017-04-20 | CR72 ---
[facility] A Service of [facility] RADIOLOGY TEXT RESULTS PATIENT: KIERSTEN BRIZUELA LOCATION: [facility] : 40 UNIT #: [id number] AGE: [address]: Tiarra Dickerson MD SEX: M ORDER DR: [id number] [address] [address] [id number] MR#: [id number] Acc #: [id number] NAME: KIERSTEN BRIZUELA : 1940 SEX: M STUDY DATE/TIME: 04/20/2017 22:20 UNIT: ONEIL ROOM: STUDY DESCRIPTION: CR Chest Single View Portable Attending Physician: Tiarra Dickerson M.D. Ordering Physician: Tiarra Dickerson M.D. Primary Care Physician: No Primary Care Physician MEDICAL IMAGING REPORT This report is preliminary unless electronic signature is present EXAM Single view chest. INDICATION Cough and shortness of air. FINDINGS Single portable AP view of the chest compared to CT chest of 04/14/2017. Tracheostomy tube remains in place. The heart and mediastinal contours are unchanged. Patchy bilateral airspace opacities are fairly similar to the prior CT. The patient previously had small bilateral pleural effusions. These are likely still present. No pneumothorax. IMPRESSION 1. Increased interstitial markings in both lungs are similar to the recent CT scan. 2. Emphysema. 3. Small bilateral pleural effusions. Dictated by... Fady Moncada M.D. THIS IS AN ELECTRONICALLY VERIFIED REPORT Fady Moncada M.D. at 04/21/2017 12:50 AM URI/armida TD: 04/20/2017 23:14 JOB #: [id number] MEDICAL IMAGING REPORT [facility] A Service of [facility] RADIOLOGY TEXT RESULTS PATIENT: KIERSTEN BRIZUELA LOCATION: [facility] : 40 UNIT #: [id number] AGE: [address]: Tiarra Dickerson MD SEX: M ORDER DR: Page 1 of 1 COPY
--- NOTE | ~2017-04-20 | EKG ---
PATIENT: KIERSTEN BRIZUELA UNIT #: [id number] Ventricular Rate: 96 BPM Atrial Rate: 96 BPM P-R Interval: 140 ms QRS Duration: 134 ms Q-T Interval: 356 ms QTC Calculation(Bezet): 449 ms P Epsom: 74 degrees Calculated R Epsom: -40 degrees Calculated T Epsom: 48 degrees Diagnosis Line: Normal sinus rhythm Diagnosis Line: Left axis deviation Diagnosis Line: Right bundle branch block Diagnosis Line: Low voltage QRS Diagnosis Line: Abnormal ECG Diagnosis Line: When compared with ECG of 20-APR-2017 23:34, Diagnosis Line: No significant change was found Diagnosis Line: Confirmed by MARIANA MORALES MD ([id number]) on Diagnosis Line: 04/25/2017 5:17:13 PM INTERPRETING : ANTONINO
--- NOTE | ~2017-04-20 | HP ---
Unit #: [id number] #: [id number] Patient: KIERSTEN BRIZUELA [id number] [address] [place], [place] [address] [id number] I MR#: [id number] NAME: KIERSTEN BRIZUELA ROOM: 566 Age: 76 Sex: M Admission Date: 04/21/2017 : 1940 Attending Physician: Mine Zepeda M.D. Primary Care Physician: No Primary Care Physician HISTORY AND PHYSICAL CHIEF COMPLAINT Acute on chronic respiratory failure, diarrhea, sepsis. HISTORY This 76-year-old male with history of laryngeal cancer, hypertension, diabetes mellitus with PEG tube and trach, is admitted for worsening respiratory failure and diarrhea. The patient has a history of MRSA pneumonia and was recently hospitalized for E. coli pneumonia with sepsis from 04/06/2017 through 04/17/2017. Did require GI consultation for acute GI bleed and was noted to have a nearly blocking tumor in the oropharyngeal region. Sputum cultures are positive for E. coli, patient was seen by Dr. Abdoul Milan. Apparently last evening in the nursing, the patient appeared to be more short of breath with thickened purulent sections. Also noted to have diarrhea. [facility] x[facility] at the [facility] revealed a mild right-sided infiltrate, and the patient was sent to this facility. Although he denies worsening shortness of breath, he does seem to be quite labored on exam, and does have this purulent secretions from his tracheostomy. The patient does say, however, that he is experiencing diarrhea. In the ER he was tachycardic and blood pressure was 102/60. He was bolused with 2 L of saline, given 125 mg of Solu-Medrol, Zosyn, tobramycin, vancomycin, as his lactic acid level was elevated, although his chest x-ray does not show a definite new infiltrate. PAST MEDICAL HISTORY 1. Sepsis requiring admission 03/26/2017 due to MRSA pneumonia. 2. Chronic respiratory failure. 3. Chronic anemia. 4. History of lung cancer. 5. Laryngeal cancer, status post laryngectomy and tracheostomy. Again an EGD was recently performed for a GI bleed and this revealed nearly blocking tumor in the oropharyngeal area. 6. Mild esophagitis and gastritis were noted. 7. Colonoscopy. 8. Mild diverticular disease. 9. Dysphagia with PEG tube placement. 10. Recent CT of the chest revealing spiculated left lower lobe mass could be primary malignancy versus metastatic disease. 11. Hypertension. 12. AODM. 13. Sacral decub. 14. Tracheostomy. 15. PEG tube placement. Unit #: [id number] #: [id number] Patient: KIERSTEN BRIZUELA ALLERGIES DANIELA inhibitor and Wellbutrin. MEDICATIONS [facility] medications: Claritin 10 mg daily; Norvasc 10 mg daily; MiraLAX daily; Zocor 20 mg daily; multivitamin daily; B complex daily; vitamin E; omeprazole 20 mg daily; prednisone taper; Lopressor 25 mg t.i.d.; chlorhexidine 0.12 rinse swish and spit 15 mL t.i.d.; allopurinol 100 mg b.i.d.; Pulmicort 0.5 mg/2 mL suspension b.i.d.; iron sulfate 300 mg b.i.d.; Glucerna 65 mL an hour; DuoNeb q.4 hours as needed; MOM p.r.n.; Robinul; p.r.n. glucagon and skin care lotions. FAMILY HISTORY Noncontributory given patient's significant morbidities at his age. SOCIAL HISTORY The [facility] lives at [facility], he is a former smoker and does not drink alcohol. REVIEW OF SYSTEMS Difficult to obtain as patient has difficulty talking as he is short of breath and has a trach in place. PHYSICAL EXAMINATION GENERAL: Ill appearing 76-year-old male with shortness of breath. VITAL SIGNS: Temperature 98.9, pulse 120, respirations 35, initial blood pressure 102/60, which has improved to 125/57 after 2 L of fluid. His O2 saturation is 91% on 9 L of a trach mask. HEENT: Eyes - PERRLA. Extraocular muscles are intact. Pharynx very dry mucosal membranes. NECK: Supple with trach in place, some nodularity right-side of the neck. CHEST: Diminished breath sounds. Mild expiratory wheeze. CARDIAC: Tachy S1 and S2 without murmur. ABDOMEN: Bowel sounds are present. There is a PEG tube in the upper abdomen, nontender. No hepatosplenomegaly or masses. EXTREMITIES: Without edema. NEUROLOGIC: Patient is awake, alert, and oriented. Cranial nerves are intact. He is weak throughout but has equal strength throughout. DIAGNOSTIC STUDIES ADMISSION LABS: Hematocrit is 31.8, which is improved, white blood count is 24, normal platelet count, 7 bands noted, coags normal. SMA 12 - glucose 297, BUN 26, sodium 131, chloride 97, albumin 2.3, lactic acid 2.8, repeat lactic acid is pending. Blood cultures are pending. ABG - pH 7.54, pCO2 31, pO2 99.7, O2 saturation 97.1% on 9 L of trach mask. Cardiac markers are negative. Urinalysis - 2+ leukocyte esterase with 25-50 white cells, but no bacteria, yeast are present. IMAGING STUDIES: Chest x-ray - increased interstitial markers bilaterally, COPD, small bilateral pleural effusions. CARDIOLOGY STUDIES: EKG - sinus tachycardia rate 115 with a right bundle branch block, which was noted previously. Left anterior fascicular block also noted previously. BNP - not done. ASSESSMENT 1. Acute on chronic respiratory failure with thick purulent trach secretions, rule out recurrent hospital acquired pneumonia. Patient Unit #: [id number] #: [id number] Patient: KIERSTEN BRIZUELA was recently admitted for E. coli pneumonia, has a history of MRSA pneumonia. 2. Diarrhea, rule out C. difficile colitis. 3. 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 4. Possible primary lung cancer versus metastatic head and neck cancer to lung. 5. Diabetes mellitus, uncontrolled. 6. Hypertension. 7. Chronic anemia. PLANS 1. Blood, sputum, urine, stool cultures. 2. Vancomycin and cefepime pending pulmonary evaluation. 3. Flagyl and Florastor pending stool cultures. 4. SCDs for DVT prophylaxis. 5. IV fluids and sliding scale insulin. 6. Bronchodilators and steroids. 7. Hold Norvasc. 8. Patient is a full code. 9. Patient's long-term prognosis is poor. Dictated by Mine Zepeda M.D. AML/ts TD: 04/21/2017 06:08 JOB #: [id number] CC: Greg Barba Jr., M.D. HISTORY AND PHYSICAL Page 1 of 1 X Mine Zepeda MD X HISTORY AND PHYSICAL
--- NOTE | ~2017-04-20 | A ---
[facility] Nutrition Therapy DATE: 04/21/17 Patient: KIERSTEN BRIZUELA Physician: DENNIS Address: [facility] Room/Bed: [address] [place] [address], Zip: [place] [address] Admit Date: 04/21/17 Date of : 40 Height: 6 4 Weight: 149 67.8 NUTRITIONAL ASSESSMENT: REASON: PT SEEN FOR LOW BMI + ONE NUTRITION RISK PT RE: HOME TUBE FEEDS PT IS 76 Y.O. MALE ADMITTED FOR [facility] PMH: HEAD AND NECK CANCER, LARYNGEAL CANCER S/P TRACHEOSTOMY, MRSA PNA, LUNG CANCER, HTN, HLD, DYSPHAGIA S/P PEG PLACEMENT, DM, ANEMIA, COPD, RESPIRATORY FAILURE Anthropometrics: 6'4", WT: 142# (BEDSIDE) (65 KG), BMI: 17.3, 70%IBW -WEIGHTS HAVE RANGED 136-149# SINCE ADMIT Labs: GLU: 297, BUN: 26, NA+:131, ALB: 2.3, A1c: 6.7 (03/27/17) Meds: LIPITOR, FERROUS GLUCONATE, PROTONIX, SOLU-MEDROL, NOVOLOG, NACL I/O & Bowel function: 520/2, 2 BMs NOTED Skin Integrity: SACRAL DECUBITUS ULCER STAGE 2 (PRESENT ON ADMISSION); DRY FLAY SKIN BLE Estimated Nutrition Needs: [id number] KCAL (35-40 KCAL/KG BW) 97-130 G PRO (1.5-2.0 G PRO/KG BW) FLUIDS CONSISTENT W/KCAL NEEDS OR MANAGE PER MD Assessment: CHART REVIEWED AND EVENTS NOTED. PT SEEN FOR LOW BMI + ONE NUTRITION RISK PT RE: HOME TUBE FEEDS. PT ASLEEP AT TIME OF VISIT RECEIVING ENTERAL NUTRITION SUPPORT OF GLUCERNA 1.5 @ 65 ML/HR. PER RN AND CHART, PT TOLERATING EN, NOTING NO ISSUES. PER INTERMEDIATE NOTES, PT WAS RECEIVING ABOVE TUBE FEEDS. PT WAS RECEIVING FREE H20 FLUSHES OF 200 ML q 6 HOURS. OF NOTE, RD ASSESSED PT BACK IN EARLY MARCH 2017 (APRIL 07 AND APRIL 14) PER [employer], PT WEIGHED ~136-145# IN MARCH 2017. THIS RD TO FOLLOW. SEE RECOMMENDATIONS BELOW. -EN PROVIDES 2340 KCAL, 128 G PRO, 1986 ML FREE H20 Dx: INADEQUATE ORAL INTAKE R/T DYSPHAGIA, PMH AEB PEG IN PLACE, LOW BMI OF 17.3, 70% IBW. Intervention: 1. ENTERAL NUTRITION SUPPORT Monitoring, Evaluation and Goals: 1. ENTERAL NUTRITION; PROVIDE >80% ESTIMATED NUTRIENT NEEDS AT GOAL X 24 HOURS 2. WEIGHTS; PROMOTE GRADUAL WEIGHT GAIN TOWARDS HEALTHY BMI 3. LABS; WNL: GLU [facility] Nutrition Therapy DATE: 04/21/17 Patient: KIERSTEN BRIZUELA Physician: DENNIS Address: [facility] Room/Bed: [address] [place] [address], Zip: [place] [address] Admit Date: 04/21/17 Date of : 40 Height: 6 4 Weight: 149 67.8 4. SKIN; PROMOTE SKIN HEALING MONITOR: -TF RATE/RESIDUALS -WEIGHTS -LABS Recommendations: 1. RECOMMEND TO CONTINUE CURRENT ENTERAL NUTRITION SUPPORT OF GLUCERNA 1.5 @ 65 ML/HR -ADEQUATE FOR PT'S CURRENT ESTIMATED NEEDS RECOMMEND FREE H20 FLUSHES OF 210 ML q 6 HOURS TO MEET PT'S CURRENT ESTIMATED FLUID NEEDS OR PER MD 2. ADD JORGE BID FOR ADDITIONAL PROTEIN AND KCAL 3. ENSURE HOB AT 30-45 DEGREES DURING EN ADMINISTRATION 4. PLEASE WEIGHT PT q 3 DAYS FOR MONITORING PURPOSES RD WILL F/U PER PROTOCOL PT IS MODERATELY COMPROMISED Respectfully, MARINA HERRERA MS, RD, LD [facility] cc: client file
--- NOTE | ~2017-04-20 | CO ---
Unit #: [id number] #: [id number] Patient: KIERSTEN COHN [id number] [address] [place], [place] [address] [id number] MR#: [id number] NAME: KIERSTEN COHN ROOM: 566 Age: 76 Sex: M Admission Date: 04/21/2017 : 1940 Attending Physician: Leyla Govea M.D. Primary Care Physician: No Primary Care Physician Consultation Date: 04/21/2017 CONSULTATION REPORT REASON FOR CONSULTATION Possible respiratory failure, possible pneumonia. HISTORY OF PRESENT ILLNESS Mr. Cohn is a 76-year-old gentleman who has a history of head and neck cancer, possible lung cancer, getting his care at the [place], and details are somewhat unclear. He has had multiple recent hospitalizations. He has a history of dysphagia with a PEG tube. He has had pneumonia, COPD exacerbations. He was discharged from this institution approximately 4 days ago. He had E-coli pneumonia at that time. According to the EHR, he had increasing shortness of breath and increased sputum and was sent to the ER where he was admitted for possible pneumonia and sepsis. To my history he says he has no shortness of breath, no increased tracheal secretions. His major complaint was diarrhea, which he says is better. When I pressed him for more details, he said, "I don't know." States he feels fairly well now. PAST MEDICAL HISTORY Past medical history is remarkable for MRSA and E-coli pneumonia, emphysema, status post trach for head and neck cancer. Apparently he has persistent disease. Abnormal CT scans with a left upper lobe area of abnormality, a left lower lobe area of abnormality, possible lung cancer, unknown history of his previous diagnosis and treatment. Anemia, esophagitis, gastritis, hypertension, diabetes, status post PEG. MEDICATIONS Medications, according to the med/rec sheet, include Norvasc, Claritin, Prilosec, a variety of vitamins, iron, Metoprolol, Zyloprim, simvastatin, MiraLAX, albuterol Mini-Neb. He had been on Bactrim apparently. He is on glycopyrrolate tablets, a variety of bowel prep medications. ALLERGIES DANIELA inhibitor and Zyban. SOCIAL HISTORY Currently resides at a [facility]. Does not smoke now, but he certainly is a reformed tobacco user. Does not currently drink. REVIEW OF SYSTEMS Mainly unreliable. He does not really want to participate with a full review of systems. Keeps answering, "I don't know." He does state that his diarrhea is better and he has no shortness of breath. He denies hemoptysis or chest pain. Otherwise, he really does not wasn't to participate with review of systems. Unit #: [id number] #: [id number] Patient: KIERSTEN COHN FAMILY HISTORY No definite familial lung disease. PHYSICAL EXAMINATION GENERAL: A thin, cachectic gentleman in no acute distress. He is on trach mask oxygen. VITAL SIGNS: Previously, his saturations on room air were adequate. I have never seen a documented low saturation, however, as he came in to the ER on oxygen. He is afebrile. Pulse is 101, respiratory rate is 18, blood pressure is 113/67. He is 6'4", 149 pounds. HEENT: Pupils equal, round and reactive to light. Sclerae anicteric. Head atraumatic. NECK: Supple. No supraclavicular or cervical adenopathy. He has a trach in place. CHEST: No wheeze, stridor. Rare rhonchi but relatively clear. Posterior auscultation could not be performed, as he could not assist. CARDIAC: Examination reveals a regular rate and rhythm. No pathologic murmur, rub or gallop. ABDOMEN: Abdomen is soft, nontender. No hepatomegaly or rebound. EXTREMITIES: Extremities reveal no clubbing, cyanosis or edema. No calf tenderness. Decreased muscle mass. SKIN: Warm and dry without rash or diaphoresis. NEUROLOGIC: Grossly intact. No focal muscular or sensory deficits. DIAGNOSTIC STUDIES LABORATORY EXAMINATION: Arterial blood gases - pH of 7.53, pCO2 of 31, pO2 99. That was on 9 liter trach mask. BUN 26, creatinine 1. Lactic acid 1.3. INR normal. White blood cell count 24, hemoglobin 10.3, platelet count 323. Flu screen negative. Urinalysis - 25 to 50 white cells, yeast present. IMAGING: Chest x-ray - Some bibasilar (1) infiltrates. No definite lobar pneumonia. Please note that a CT scan recently showed no evidence of PE, severe emphysema. Did have some mucus plugging in his left lower lobe, but distal airways were patent. He had a mass-like area left lower lobe. He also had an area in his left upper lobe, and cancer is suspected. CARDIOVASCULAR: EKG - Sinus tachycardia. Right bundle branch block. IMPRESSION 1. History is somewhat inconsistent. Diarrhea seems to be his primary complaint to my history. Certainly he is at risk for repeated pneumonia, and he does have a leukocytosis. Leukocytosis could be related to a urinary tract infection. 2. Respiratory failure, unclear if he had documented low room air sats but currently is on oxygen. 3. Head and neck cancer and likely lung cancer. [facility] Details somewhat unclear. 4. COPD without active bronchospasm. 5. Dysphagia status post PEG. 6. Medical problems listed above. PLAN Certainly, code status needs to be addressed. Goals of care need to be addressed. I am not convinced he has pneumonia but certainly he is at high Unit #: [id number] #: [id number] Patient: KIERSTEN COHN risk. Antibiotics will be continued. We will suction his trachea for tracheal secretions for culture and Gram stain, follow up urine cultures, and will add treatment for yeast cystitis. His oxygenation needs will be checked. Thank you very much for allowing me to participate in the care of Mr. Cohn. Dictated by... Edgardo Rivera M.D. CARLOS/dottie TD: 04/21/2017 12:01 JOB #: [id number] CONSULTATION REPORT Page 1 of 1 X Edgardo Rivera MD X CONSULTATION REPORT
[~2017-04-20 21:26] MED LIST changes: +ALBUTEROL2.5 MG/3 M INH; +ALBUTEROL2.5 MG/3 M NEB; +AQUAPHOR HEALIN50 GM TOP; +BACTRIM 400-801 EACH GT; +BISACODYL EC5 M1 PO; +CENTAMIN L9 MG/15 ML GT; +DULCOLAX10 MG PR; +ENEMEEZ PLUS MIN5 ML PR; +FLEET ENEMA133 M1 PR; +GLYCOPYRROLATE1 MG GT; +MILK OF MAGNESIA PO; +NOVOLOG FL100 UNIT/1; +PROMOD946 ML GT
[2017-04-20 22:10] LABS: ARTERIAL BLD GAS O2 SATURATION 97.1 % (90.0-100.0); ARTERIAL BLOOD GAS CARBOXY HB 0.9 %sat (0.0-9.0); ARTERIAL BLOOD GAS MET HB 0.5 %sat (0.0-2.0); ARTERIAL BLOOD GAS PCO2 30.8 mmHg (35.0-45.0); ARTERIAL BLOOD GAS PO2 99.7 mmHg (80.0-100); ARTERIAL BLOOD GAS pH 7.536 (7.350-7.450)
[2017-04-20 22:11] LABS: ARTERIAL BLOOD GAS ALLEN TEST NORMAL; ARTERIAL BLOOD GAS ART SITE RIGHT RADIAL; ARTERIAL DRAW? YES
[2017-04-20 22:12] LABS: ARTERIAL BLOOD GAS DELIVERY TRACHEAL MASK
[2017-04-20 23:33] LABS: BASOPHIL# 0.1 X10e3 (0-0.3); BASOPHIL% 0.2 % (0-2.5); HEMATOCRIT 31.8 % (38.0-50.0); HEMOGLOBIN 10.3 gm/dL (13.0-16.0); LYMPHOCYTE# 0.6 X10e3 (1.0-3.5); LYMPHOCYTE% 2.5 % (17.0-45.0); MEAN CELL VOLUME 97.9 FL (83-96); MEAN CORPUSCULAR HEMOGLOBIN 31.5 PG (28-34); MEAN CORPUSCULAR HGB CONC 32.2 g/dL (30-36); MEAN PLATELET VOLUME 8.9 FL (6.5-11.5); MONOCYTE# 0.9 X10e3 (0-1.0); MONOCYTE% 3.6 % (3.0-12.0); NEUTROPHIL# 22.6 X10e3 (1.5-7.1); NEUTROPHIL% 93.7 % (40-75); PLATELET COUNT 323 X10e3 (140-420); RED BLOOD COUNT 3.25 X10e (3.90-5.60); WHITE BLOOD COUNT 24.2 X10e3 (4.0-10.5)
[2017-04-20 23:34] LABS: DIFF IND YES
[2017-04-20 23:46] LABS: INR 1.1; PARTIAL THROMBOPLASTIN TIME 28.2 SECONDS (23.5-31.3); PROTHROMBIN TIME (PATIENT) 11.2 SECONDS (9.6-11.5)
[2017-04-20 23:52] LABS: ALBUMIN SERUM 2.3 g/dL (3.5-5.0); BILIRUBIN, DIRECT 0.2 mg/dL (0.0-0.2); BILIRUBIN,INDIRECT 0.5 mg/dL (0.0-0.9); BILIRUBIN,TOTAL 0.7 mg/dL (0.2-2.0); GLOM FILT RATE Estimated 84.4 mL/min (>60); MAGNESIUM 2.1 mg/dL (1.6-3.0); POTASSIUM 4.4 mmol/L (3.5-5.1); PROTEIN TOTAL SERUM 7.3 g/dL (6.0-8.3)
[2017-04-20 23:53] LABS: PLATELET ESTIMATE NORMAL (NORMAL)
[2017-04-20 23:54] LABS: HYPOCHROMIA SL; VACUOLIZATION P
[2017-04-20 23:56] LABS: INFLUENZA A NEG (NEG); INFLUENZA B NEG (NEG)
[2017-04-21 00:24] LABS: URINE SOURCE CLEAN CATCH
[2017-04-21 00:27] LABS: URINE APPEARANCE CLEAR; URINE BILIRUBIN NEG (NEG); URINE BLOOD NEG (NEG); URINE COLOR DK YELLOW; URINE GLUCOSE NEG (NEG); URINE KETONE NEG (NEG); URINE LEUKOCYTE ESTERASE 2+ (NEG); URINE NITRATE NEG (NEG); URINE PROTEIN NEG (NEG); URINE SPECIFIC GRAVITY 1.019 (1.003-1.035)
[2017-04-21 00:30] LABS: CULTURE INDICATED? YES; URBCS1 AUWI 0-2 /[HPF] (0-2); URINE BACTERIA AUWI NEG (NEGATIVE); URINE SQUAMOUS EPITHELIAL CELL FEW /[HPF]; UWBCS1 AUWI 25-50 (0-5)
[2017-04-21 00:40] LABS: URINE YEAST PRESENT
[2017-04-21 01:03] LABS: POC - CKMB <1.0 ng/mL (0.0-7.9); POC - TROPONIN <0.05 ng/mL (<=0.05)
[2017-04-21 13:01] LABS: HEMATOCRIT 29.1 % (38.0-50.0); HEMOGLOBIN 9.2 gm/dL (13.0-16.0); LYMPHOCYTE# 0.6 X10e3 (1.0-3.5); LYMPHOCYTE% 2.9 % (17.0-45.0); MEAN CELL VOLUME 99.5 FL (83-96); MEAN CORPUSCULAR HEMOGLOBIN 31.4 PG (28-34); MEAN CORPUSCULAR HGB CONC 31.5 g/dL (30-36); MEAN PLATELET VOLUME 8.2 FL (6.5-11.5); MONOCYTE# 0.3 X10e3 (0-1.0); MONOCYTE% 1.7 % (3.0-12.0); NEUTROPHIL# 19.3 X10e3 (1.5-7.1); NEUTROPHIL% 95.4 % (40-75); PLATELET COUNT 295 X10e3 (140-420); RED BLOOD COUNT 2.92 X10e (3.90-5.60); RED CELL DISTRIBUTION WIDTH 15.2 % (11.0-15.5); WHITE BLOOD COUNT 20.2 X10e3 (4.0-10.5)
[2017-04-21 13:02] LABS: DIFF IND NO
[2017-04-21 13:24] LABS: BUN/CREATININE RATIO 27.77; CREATININE SERUM 0.9 mg/dL (0.6-1.4); GLOM FILT RATE Estimated 95.8 mL/min (>60); POTASSIUM 4.6 mmol/L (3.5-5.1)
[2017-04-22 06:36] LABS: HEMATOCRIT 26.1 % (38.0-50.0); HEMOGLOBIN 8.5 gm/dL (13.0-16.0); MEAN CELL VOLUME 98.8 FL (83-96); MEAN CORPUSCULAR HGB CONC 32.4 g/dL (30-36); MEAN PLATELET VOLUME 8.7 FL (6.5-11.5); RED BLOOD COUNT 2.65 X10e (3.90-5.60); RED CELL DISTRIBUTION WIDTH 15.1 % (11.0-15.5); WHITE BLOOD COUNT 23.7 X10e3 (4.0-10.5)
[2017-04-22 06:59] LABS: BUN/CREATININE RATIO 28.75; CALCIUM SERUM 8.9 mg/dL (8.4-10.2); CREATININE SERUM 0.8 mg/dL (0.6-1.4); GLOM FILT RATE Estimated 100.6 mL/min (>60); POTASSIUM 3.8 mmol/L (3.5-5.1)
[2017-04-22 23:24] LABS: BUN/CREATININE RATIO 32.5; CREATININE SERUM 0.8 mg/dL (0.6-1.4); GLOM FILT RATE Estimated 100.6 mL/min (>60); MAGNESIUM 1.8 mg/dL (1.6-3.0); POTASSIUM 3.4 mmol/L (3.5-5.1)
[2017-04-23 05:30] LABS: HEMATOCRIT 26.7 % (38.0-50.0); HEMOGLOBIN 8.6 gm/dL (13.0-16.0); MEAN CELL VOLUME 97.1 FL (83-96); MEAN CORPUSCULAR HEMOGLOBIN 31.2 PG (28-34); MEAN CORPUSCULAR HGB CONC 32.2 g/dL (30-36); MEAN PLATELET VOLUME 8.6 FL (6.5-11.5); RED BLOOD COUNT 2.76 X10e (3.90-5.60); WHITE BLOOD COUNT 24.1 X10e3 (4.0-10.5)
[2017-04-23 06:19] LABS: BUN/CREATININE RATIO 38.57; CREATININE SERUM 0.7 mg/dL (0.6-1.4); GLOM FILT RATE Estimated 106.3 mL/min (>60)
[2017-04-23 06:28] LABS: POTASSIUM 2.9 mmol/L (3.5-5.1)
[2017-04-23 06:57] LABS: CK TOTAL 13 IU/L (36-174)
[2017-04-24 07:03] LABS: HEMATOCRIT 29.5 % (38.0-50.0); HEMOGLOBIN 9.3 gm/dL (13.0-16.0); MEAN CELL VOLUME 97.6 FL (83-96); MEAN CORPUSCULAR HEMOGLOBIN 30.8 PG (28-34); MEAN CORPUSCULAR HGB CONC 31.6 g/dL (30-36); MEAN PLATELET VOLUME 8.8 FL (6.5-11.5); RED BLOOD COUNT 3.03 X10e (3.90-5.60); RED CELL DISTRIBUTION WIDTH 15.5 % (11.0-15.5)
[2017-04-24 08:09] LABS: BUN/CREATININE RATIO 51.42; CREATININE SERUM 0.7 mg/dL (0.6-1.4); GLOM FILT RATE Estimated 106.3 mL/min (>60); MAGNESIUM 1.6 mg/dL (1.6-3.0); POTASSIUM 3.9 mmol/L (3.5-5.1)
[2017-04-25 05:44] LABS: HEMATOCRIT 26.5 % (38.0-50.0); HEMOGLOBIN 8.8 gm/dL (13.0-16.0); MEAN CELL VOLUME 96.3 FL (83-96); MEAN CORPUSCULAR HEMOGLOBIN 32.1 PG (28-34); MEAN CORPUSCULAR HGB CONC 33.4 g/dL (30-36); MEAN PLATELET VOLUME 8.5 FL (6.5-11.5); RED BLOOD COUNT 2.75 X10e (3.90-5.60); RED CELL DISTRIBUTION WIDTH 15.4 % (11.0-15.5)
[2017-04-25 06:47] LABS: BUN/CREATININE RATIO 38.75; CREATININE SERUM 0.8 mg/dL (0.6-1.4); GLOM FILT RATE Estimated 100.6 mL/min (>60); MAGNESIUM 1.6 mg/dL (1.6-3.0); POTASSIUM 4.1 mmol/L (3.5-5.1)
== END 2017-04-25 14:59 | DRG 871 ==
LOC: CED 21:26 → C5C 04-21 01:44 → CEDOF 04-21 01:44 → C5C 04-21 03:43 → CEDOF 04-21 03:43 → C5C 04-21 07:18
PROVIDERS: Family Medicine; Internal Medicine; Student in an Organized Health Care Education/Training Program
PROC: 02HV33Z Insertion of Infusion Device into Superior Vena Cava, Percutaneous Approach (ICD-10-PCS; principal; 2017-04-22)
DX: A41.9 Sepsis, unspecified organism (principal); J15.212 Pneumonia due to Methicillin resistant Staphylococcus aureus; J96.21 Acute and chronic respiratory failure with hypoxia; E43 Unspecified severe protein-calorie malnutrition; E87.2 Acidosis; L89.159 Pressure ulcer of sacral region, unspecified stage; E11.65 Type 2 diabetes mellitus with hyperglycemia; C79.89 Secondary malignant neoplasm of other specified sites; J44.0 Chronic obstructive pulmonary disease with (acute) lower respiratory infection; J44.1 Chronic obstructive pulmonary disease with (acute) exacerbation; N39.0 Urinary tract infection, site not specified; Z93.0 Tracheostomy status; R19.7 Diarrhea, unspecified; K57.90 Diverticulosis of intestine, part unspecified, without perforation or abscess without bleeding; C32.9 Malignant neoplasm of larynx, unspecified; Z93.1 Gastrostomy status; D50.9 Iron deficiency anemia, unspecified; Z87.891 Personal history of nicotine dependence; K29.70 Gastritis, unspecified, without bleeding; K20.9 Esophagitis, unspecified; I45.10 Unspecified right bundle-branch block; E87.6 Hypokalemia; Z66 Do not resuscitate; Z51.5 Encounter for palliative care
CPT/HCPCS: 36415; 36600; 71010; 80048; 80076; 80202; 81003; 82308; 82550; 82553; 82803; 82947; 83605; 83735; 83880; 84484; 85025; 85027; 85610; 85730; 87040; 87070; 87077; 87086; 87186; 87205; 87493; 87804; 93005; 93306; 94640; 94760; 96361; 96365; 96367; 96375; 99291; J0692; J1450; J1815; J2020; J2543; J2920; J2930; J3260; J3370